=== PATIENT | male | born 1980 | race Caucasian/White ===

== ENCOUNTER 2020-08-02 22:59 | Emergency (ER) | payer OTHER, SELFPAY ==
[2020-08-02 23:23] VITALS: BP 169/119; PULSE 125; RESP 16; TEMP 38.2; O2SAT 99; BMI 26.6
--- NOTE | 2020-08-02 23:35 | W.ED.FEVER ---
HPI - Fever General: Chief Complaint: Fever Stated Complaint: Sore throat/cough/ Time Seen by Provider: 08/02/20 23:31 Source: patient Mode of arrival: ambulatory Limitations: no limitations History of Present Illness: HPI Narrative: Patient comes in with 2-day history of malaise, cough, and fever starting today. Patient has had positive COVID-19 exposure. Patient also has a couple of healing lesions that he reports are pretty well cleared. Patient appears mildly unwell. Patient appears in no pain. Review of Systems General: Reports: 10 or more systems reviewed and unremarkable except in HPI and below Resp: Reports: dyspnea and non-productive cough Physical Exam Const: COMMON NORMALS: no acute distress and patient oriented x3 GENERAL APPEARANCE: cooperative HENMT: COMMON NORMALS: normocephalic, TM's normal bilaterally and Normal external nose present HEAD & SCALP: normal to inspection and normocephalic NOSE: Normal external nose present TYMPANIC MEMBRANE: TM's normal bilaterally MOUTH: Normal oral and palatal mucosa present THROAT: posterior oropharynx normal Eye: GENERAL EYE: appearance normal, both eyes and all related structures Neck/C-Spine: COMMON NORMALS: full ROM Lymph: LYMPHATIC: no lymphadenopathy noted Chest: COMMONS NORMALS: normal inspection of the chest Resp: COMMON NORMALS: normal respiratory effort EFFORT & INSPECTION: Yes able to speak in complete sentences Cardio: COMMON NORMALS: regular rate and regular rhythm RATE: regular rate RHYTHM: regular rhythm GI: COMMON NORMALS: non-tender : COMMON NORMALS: Yes no CVA tenderness BLADDER/KIDNEY EXAM: Yes no CVA tenderness Back/Pelvis: COMMON NORMALS: no CVA tenderness and thoracic and lumbar spine normal to inspection Extremity: COMMON NORMALS: normal to inspection Neuro: COMMON NORMALS: patient oriented x3 and moves all extremities Psych: COMMON NORMALS: mental status grossly normal and cooperative Skin: NARRATIVE SKIN EXAM: Clearing skin lesions. Course Vital Signs: Vital signs: Vital Signs Temperature 100.7 F H 08/02/20 23:23 Pulse Rate 125 H 08/02/20 23:23 Respiratory Rate 16 08/02/20 23:23 Blood Pressure 169/119 08/02/20 23:23 Pulse Oximetry 99 08/02/20 23:23 MDM - Fever MDM Narrative: Medical decision making narrative: Patient comes in today for concerns of exposure to COVID-19. Patient does have symptoms of fever, cough and shortness of breath. Exam notes lungs are clear to auscultation. Vital signs are normal except for a fever of 100.7 and a mild tachycardia. Patient has some dry clearing lesions. Differential diagnosis includes pneumonia, upper respiratory infection, COVID-19, folliculitis. Patient's folliculitis is clearing. We will go ahead and cover with Bactrim due to history of MRSA. Patient exam indicates a upper respiratory infection at this time. No signs of pneumonia is noted. COVID-19 testing was sent to [facility]. Reviewed exam with patient recommendations for treatment and follow-up. Patient reported understanding Discharge Plan Discharge Patient Disposition: Home Clinical Impression: Folliculitis, Close exposure to 2019 novel coronavirus URI (upper respiratory infection) Qualifiers: URI type: unspecified URI Qualified Code(s): J06.9 - Acute upper respiratory infection, unspecified Condition: Stable Prescriptions: New Bactrim DS 800-160 mg tablet 1 tab PO BID 7 Days Qty: 14 RF: 0 Discharge Orders: Discharge Order (Routine); Ordered 08/02/20 Ordered By: Rommel Perales Referrals: Reese Baxter [Primary Care Provider] - Discharge Diet: Usual diet Discharge Activity: Increase activity as tolerated Patient Instructions: Folliculitis (ED) Activity Restrictions/Additional Instructions: Drink plenty of fluids. Acetaminophen and ibuprofen for pain and fever. It will take 2 to 3 days for the COVID for test results. Use antibiotics as directed for skin infection. Follow-up with primary care. Return to the emergency department for new concerns. Stay quarantine until test results are returned. 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
[2020-08-02] MEDS: acetaminophen 500 mg Tablet 1000 MG PO (23:52)
[2020-08-02] MEDS: sulfamethoxazole-trimeth DS 160-800 mg Tablet 1 TAB PO (23:52)
[2020-08-02 23:53] VITALS: BP 166/110; PULSE 124; RESP 24; O2SAT 98
[2020-08-04 14:32] LABS: Quest SARS-CoV-2 RNA NOT DETECTED (NOT DETECTED)
== END 2020-08-03 00:05 | disposition home or self-care (01) ==
PROVIDERS: Emergency Provider Nurse Practitioner Family; PCP Physician Assistant
DX: J06.9 Acute upper respiratory infection, unspecified (principal); L73.9 Follicular disorder, unspecified; Z20.828 Contact with and (suspected) exposure to other viral communicable diseases
CPT/HCPCS: 12345; 87635; 99282; 99283

== ENCOUNTER 2020-10-19 15:25 | Emergency (ER) | payer SELFPAY ==
[2020-10-19 15:39] VITALS: BP 198/154; PULSE 109; RESP 18; TEMP 36.8; O2SAT 100; BMI 26.6
--- NOTE | 2020-10-19 16:24 | ED_ITS ---
HPI - Skin/Abscess/Foreign Bdy General: Chief complaint: Skin/Abscess/Foreign Body Stated complaint: left food issue Time Seen by Provider: 10/19/20 16:16 Source: patient Mode of arrival: ambulatory Limitations: no limitations History of Present Illness: HPI narrative: Patient comes in with redness and swelling to the dorsal left foot. Patient reports no history of staph or joint problems. Patient appears well. Patient appears no acute distress. Patient is able to bear weight on the extremity. Review of Systems General: Reports: 10 or more systems reviewed and unremarkable except in HPI and below Musc: Reports: other (Left foot redness and swelling.) Physical Exam Const: COMMON NORMALS: no acute distress and patient oriented x3 GENERAL APPEARANCE: cooperative HENMT: COMMON NORMALS: normocephalic and Normal external nose present HEAD & SCALP: normal to inspection and normocephalic NOSE: Normal external nose present MOUTH: Normal oral and palatal mucosa present Eye: GENERAL EYE: appearance normal, both eyes and all related structures Neck/C-Spine: COMMON NORMALS: full ROM Chest: COMMONS NORMALS: normal inspection of the chest Resp: COMMON NORMALS: normal respiratory effort EFFORT & INSPECTION: Yes able to speak in complete sentences Cardio: COMMON NORMALS: regular rate and regular rhythm RATE: regular rate RHYTHM: regular rhythm GI: COMMON NORMALS: non-tender Back/Pelvis: COMMON NORMALS: thoracic and lumbar spine normal to inspection Extremity: NARRATIVE EXTREMITY EXAM: Patient has a area of redness and mild swelling to the dorsal left foot. Pulses are intact. Minimal induration is noted to the skin. Redness and swelling is localized to a specific area to the foot. Neuro: COMMON NORMALS: patient oriented x3 and moves all extremities Psych: COMMON NORMALS: mental status grossly normal and cooperative Skin: COMMON NORMALS: no rashes or lesions noted GENERAL SKIN EXAM: no rashes or lesions noted Course Vital Signs: Vital signs: Vital Signs Temperature 98.2 F 10/19/20 15:39 Pulse Rate 109 H 10/19/20 15:39 Respiratory Rate 18 10/19/20 15:39 Blood Pressure 198/154 10/19/20 15:39 Pulse Oximetry 100 10/19/20 15:39 MDM - Skin/Abscess/Foreign Bdy MDM Narrative: Medical decision making narrative: Patient comes in for evaluation of redness and swelling to the dorsal left foot. Exam notes equal pulses prompt capillary refill. Patient is weightbearing. Patient does have tenderness to the area of redness and swelling. Differential diagnosis includes cellulitis, gout, dermatophyte infection. Patient was started on clindamycin 450 twice a day for 7 days. Patient was treated with ibuprofen and hydrocodone for pain and discomfort. Patient was recommended to rest for the next 2 days with foot elevated and monitor for increasing swelling or worsening symptoms. Patient reported understanding of care plan and need for follow-up or return. Discharge Plan Discharge Patient Disposition: Home Clinical Impression: Cellulitis of left foot Condition: Stable Prescriptions: New clindamycin HCl 150 mg capsule 450 mg PO BID 7 Days Qty: 42 RF: 0 ibuprofen 600 mg tablet 600 mg PO Q6H Qty: 30 RF: 0 hydrocodone-acetaminophen 5-325 mg tablet 1 tab PO Q6H PRN (Reason: pain) Qty: 7 RF: 0 Discharge Orders: Discharge ED (Routine); Ordered 10/19/20 Ordered By: Rommel Perales Discharge Diet: Usual diet Discharge Activity: Increase activity as tolerated Patient Instructions: Cellulitis (ED) Activity Restrictions/Additional Instructions: Home and rest. Elevate foot. Drink plenty of water with medication. Healthy diet and activity. Take medications as directed. Follow-up with primary care as needed. Return to the emergency department for new concerns or worsening symptoms. 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
[2020-10-19] MEDS: clindamycin 150 mg Capsule 450 MG PO (16:43)
[2020-10-19] MEDS: HYDROcodone-acetaminophen 5-325 mg Tablet 1 TAB PO (16:43)
[2020-10-19] MEDS: ibuprofen 600 mg Tablet PO (16:43)
== END 2020-10-19 16:45 | disposition home or self-care (01) ==
PROVIDERS: Emergency Provider Nurse Practitioner Family
DX: L03.116 Cellulitis of left lower limb (principal)
CPT/HCPCS: 12345; 99281; 99283

== ENCOUNTER 2020-11-16 22:02 | Inpatient (IN) | payer SELFPAY ==
[2020-11-16 22:07] VITALS: BP 140/100; PULSE 89; RESP 16; TEMP 36.3; O2SAT 98; BMI 26.6
--- NOTE | 2020-11-16 22:16 | XR_ITS ---
WS: [id number] KUB, 11/16/2020 Clinical Data: LUQ pain Comparison: None. Findings: No abnormal intraabdominal masses or calcifications are seen. There is no dilatated small bowel or ev idence of obstruction. There is increased density in the left sided abdomen which may indicate a left-sided mass. XR/XR KUB portable [id number] Impression: Possible left abdominal mass.
--- NOTE | 2020-11-16 22:19 | W.ED.ABDPA2 ---
Documented by User: DEJA Carmona 11/17/20 00:22 HPI - Abdominal Pain General: Chief Complaint: Abdominal Pain Stated Complaint: ab pain Time Seen by Provider: 11/16/20 22:07 History of Present Illness: HPI narrative: States he is feeling fine all day cutting firewood went home to eat after about an hour or less after eating developed severe left upper quadrant pain. To the pain continues denies any medication usage for. Does feel better after burping. She denies any injury. He said he was hauling firewood earlier today but did not fall. Denies any recent injury in the last few days. After speaking with his dad later his dad said that he had been feeling bad 2 or 3 days. MD elicited complaint: abdominal pain Onset (ago): minute(s) Pain Consistency: constant Location: LUQ Severity: moderate Quality: cramping Radiation: LUQ Migration to: no migration Associated Symptoms: Reports no associated symptoms; Denies chills, fever(s), nausea and vomiting Review of Systems Const: Denies: fever(s), chills or body aches Eyes: Denies: change in vision or blurry vision ENMT: Denies: throat pain or nasal congestion Card: Denies: chest pain or dyspnea on exertion Resp: Denies: dyspnea, productive cough or non-productive cough GI: Reports: abdominal pain; Denies: nausea or vomiting : Denies: difficulty urinating Musc: Denies: extremity pain Skin/Breast: Denies: rash Neuro: Denies: headache(s) Psych: Denies: anxiety or depression Roby/Lymph: Denies: easy bruising Physical Exam Const: COMMON NORMALS: no acute distress, average body habitus and patient oriented x3 HENMT: COMMON NORMALS: normocephalic HEAD & SCALP: normal to inspection and normocephalic FACE & SINUS: normal facial exam Eye: COMMON NORMALS: conjunctivae normal GENERAL EYE: appearance normal, both eyes and all related structures CONJUNCTIVA: Yes conjunctivae normal Neck/C-Spine: COMMON NORMALS: no JVD Chest: COMMONS NORMALS: normal inspection of the chest Resp: COMMON NORMALS: normal respiratory effort and clear to auscultation bilaterally AUSCULTATION: clear to auscultation bilaterally Cardio: COMMON NORMALS: no JVD, regular rate and regular rhythm RATE: regular rate RHYTHM: regular rhythm GI: COMMON NORMALS: Normal to inspection, nondistended, normoactive bowel sounds present PALPATION: Yes Tenderness to palpation present (GI) Details: LUQ Extremity: COMMON NORMALS: normal to inspection and full ROM Neuro: COMMON NORMALS: patient oriented x3 Course Vital Signs: Vital signs: Vital Signs Temperature 97.3 F L 11/16/20 22:07 Pulse Rate 87 11/17/20 00:09 Respiratory Rate 16 11/17/20 00:09 Blood Pressure 119/66 11/17/20 00:09 Pulse Oximetry 96 11/17/20 00:09 MDM - Abdominal Pain MDM Narrative: Medical decision making narrative: Discussed case with Dr. Ferro suggest called Dr. Duncan. I spoke with Dr. Perla Duncan says admit patient to [facility] and he will follow. Lab Data: Labs: Lab Results 11/16/20 11/16/20 Range/Units 22:16 22:16 WBC 13.6 H (4.0-10.0) 10^3/ uL RBC 4.16 (4.1-5.3) 10^6/u L Hgb 11.9 (11.7-16.6) g/dL Hct 37.5 L (42.0-52.0) % MCV 90.1 (80-94) fL MCH 28.6 (28.0-34.0) pg MCHC 31.7 (30.0-36.0) g/dL RDW 12.3 (12.1-15.1) % Plt Count 315 (130-400) 10^3/c mm MPV 9.8 (7.4-10.4) fL Neut % (Auto) 82.8 % Lymph % (Auto) 10.2 % [place] % (Auto) 5.6 % Eos % (Auto) 0.3 % Baso % (Auto) 0.7 % Neut # (Auto) 11.24 H (1.8-7.7) 10^3/u L Lymph # (Auto) 1.4 (0.8-4.8) 10^3/u L [place] # (Auto) 0.8 (0.2-0.9) 10^3/u L Eos # (Auto) 0.0 (0.0-0.8) 10^3/u L Baso # (Auto) 0.1 (0.0-0.1) 10^3/u L Nucleated RBC % (a uto) 0 % Nucleated RBCs # 0.0 /100WBC Sodium 140 (136-145) mmol/L Potassium 3.8 (3.5-5.1) mmol/L Chloride 104 (98-107) mmol/L Carbon Dioxide 29 (22-29) mmol/L Anion Gap 10.8 (5-19) BUN 17 (6-20) mg/dL Creatinine 1.5 H (0.7-1.2) mg/dL GFR Calculation 51.6 L (90-130) mL/min Glucose 156 H (65-115) mg/dL Calculated Osmolal ity 295 (285-295) mOsm/k g Calcium 8.5 (8.5-10.5) mg/dL Total Bilirubin 0.2 (0.15-1.2) mg/dL AST 19 (0-40) U/L ALT 24 (0-41) U/L Alkaline Phosphata se 106 (40-130) IU/L Total Protein 6.3 L (6.6-8.7) g/dL Albumin 3.3 L (3.5-5.2) g/dL Globulin 3.0 (1.3-4.6) g/dL Lipase 28 (13-60) U/L Discharge Plan Discharge Patient Disposition: Admitted As Inpatient Clinical Impression: Kidney laceration, left Qualifiers: Encounter type: initial encounter Qualified Code(s): S37.032A - Laceration of left kidney, unspecified degree, initial encounter Condition: Stable Coding Level of Care Code 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 He adamantly denies any trauma. I saw patient with above midlevel. I discussed this case with Dr. Duncan requested being admitted and will check every 3 hour H&H's. Patient has been stable here. His blood pressure and heart rate of been normal. Lab Data: Labs: Lab Results 11/16/20 11/16/20 Range/Units 22:16 22:16 WBC 13.6 H (4.0-10.0) 10^3/ uL RBC 4.16 (4.1-5.3) 10^6/u L Hgb 11.9 (11.7-16.6) g/dL Hct 37.5 L (42.0-52.0) % MCV 90.1 (80-94) fL MCH 28.6 (28.0-34.0) pg MCHC 31.7 (30.0-36.0) g/dL RDW 12.3 (12.1-15.1) % Plt Count 315 (130-400) 10^3/c mm MPV 9.8 (7.4-10.4) fL Neut % (Auto) 82.8 % Lymph % (Auto) 10.2 % [place] % (Auto) 5.6 % Eos % (Auto) 0.3 % Baso % (Auto) 0.7 % Neut # (Auto) 11.24 H (1.8-7.7) 10^3/u L Lymph # (Auto) 1.4 (0.8-4.8) 10^3/u L [place] # (Auto) 0.8 (0.2-0.9) 10^3/u L Eos # (Auto) 0.0 (0.0-0.8) 10^3/u L Baso # (Auto) 0.1 (0.0-0.1) 10^3/u L Nucleated RBC % (a uto) 0 % Nucleated RBCs # 0.0 /100WBC Sodium 140 (136-145) mmol/L Potassium 3.8 (3.5-5.1) mmol/L Chloride 104 (98-107) mmol/L Carbon Dioxide 29 (22-29) mmol/L Anion Gap 10.8 (5-19) BUN 17 (6-20) mg/dL Creatinine 1.5 H (0.7-1.2) mg/dL GFR Calculation 51.6 L (90-130) mL/min Glucose 156 H (65-115) mg/dL Calculated Osmolal ity 295 (285-295) mOsm/k g Calcium 8.5 (8.5-10.5) mg/dL Total Bilirubin 0.2 (0.15-1.2) mg/dL AST 19 (0-40) U/L ALT 24 (0-41) U/L Alkaline Phosphata se 106 (40-130) IU/L Total Protein 6.3 L (6.6-8.7) g/dL Albumin 3.3 L (3.5-5.2) g/dL Globulin 3.0 (1.3-4.6) g/dL Lipase 28 (13-60) U/L Critical Care Time Critical Care Time: Critical Care Time: Yes Total Critical Care Time: 36 Attestation: This case had a high probability of a clinically significant, sudden, or life threatening deterioration of this patient's condition which required my full and direct attention, intervention and personal management. 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
[2020-11-16 22:27] LABS: Basophils # 0.1 10^3/uL (0.0-0.1); Basophils % 0.7 %; Eosinophils % 0.3 %; Hematocrit 37.5 % (42.0-52.0); Hemoglobin 11.9 g/dL (11.7-16.6); Lymphocytes # 1.4 10^3/uL (0.8-4.8); Lymphocytes % 10.2 %; Mean Corpuscular HGB Conc 31.7 g/dL (30.0-36.0); Mean Corpuscular Hemoglobin 28.6 pg (28.0-34.0); Mean Corpuscular Volume 90.1 fL (80-94); Mean Platelet Volume 9.8 fL (7.4-10.4); Monocytes # 0.8 10^3/uL (0.2-0.9); Monocytes % 5.6 %; Neutrophils # 11.24 10^3/uL (1.8-7.7); Neutrophils % 82.8 %; Nucleated Red Blood Cells % 0 %; Platelet Count 315 10^3/cmm (130-400); Red Blood Count 4.16 10^6/uL (4.1-5.3); Red Cell Distribution Width 12.3 % (12.1-15.1); White Blood Count 13.6 10^3/uL (4.0-10.0)
--- NOTE | 2020-11-16 22:33 | CTR_ITS ---
PROCEDURE INFORMATION: Exam: CT Abdomen And Pelvis With Contrast Exam date and time: 11/16/2020 10:34 PM Age: 40 years old Clinical indication: Abdominal pain; Localized; Left lower quadrant (llq); Additional info: Luq pain TECHNIQUE: Imaging protocol: Computed tomography of the abdomen and pelvis with intravenous contrast. Radiation optimization: All CT scans at this facility use at least one of these dose optimization techniques: automated exposure control; mA and/or kV adjustment per patient size (includes targeted exams where dose is matched to clinical indication); or iterative reconstruction. Contrast material: OMNI 300; Contrast volume: 95 ml; Contrast route: INTRAVENOUS (IV); COMPARISON: CR XR KUB portable [id number] 11/16/2020 10:17 PM RADIATION DOSE METRICS: Total DLP (mGy-cm): 566.74 FINDINGS: Liver: Normal. No mass. Gallbladder and bile ducts: Normal. No calcified stones. No ductal dilation. Pancreas: Normal. No ductal dilation. Spleen: Normal. No splenomegaly. Adrenal glands: Normal. No mass. Kidneys and ureters: A small laceration is seen in the posterior aspect of the left kidney superior pole measuring approximately 9 mm in depth. Small foci of contrast extravasation are appreciated. A large left perinephric hematoma is noted which extends into the left aspect of the retroperitoneum. The left kidney is anteriorly displaced and mildly compressed. Relative delayed enhancement of the left kidney in comparison to the right kidney is appreciated. A tiny renal stone is seen in the left kidney. A 14 mm simple appearing right renal cyst is noted. The right kidney appears normal. Stomach and bowel: Unremarkable. No obstruction. No mucosal thickening. Appendix: No evidence of appendicitis. Vasculature: Unremarkable. No abdominal aortic aneurysm. Lymph nodes: Unremarkable. No enlarged lymph nodes. Urinary bladder: Unremarkable as visualized. Reproductive: Unremarkable as visualized. Bones/joints: Unremarkable. No acute fracture. Soft tissues: Unremarkable. CT/CT abdomen pelvis w con* [id number] IMPRESSION: Grade IV left renal injury. Josh Owen was informed of exam results at 11/17/2020 12:01 AM RELAY DISPATCHER. Radiation Dose CTDIVOL = (mGy): DLP = 566.74 (mGy-cm)
[2020-11-16] MEDS: ketorolac 30 mg/mL INJ IVP (22:35)
[2020-11-16] MEDS: diphenhydrAMINE 50 mg/mL SDV 1mL 25 MG IVP (22:35)
[2020-11-16] MEDS: ondansetron 2 mg/ML SDV 2 mL 4 MG IVP (22:35)
[2020-11-16 22:48] LABS: Alanine Aminotransferase 24 U/L (0-41); Albumin Level 3.3 g/dL (3.5-5.2); Alkaline Phosphatase 106 IU/L (40-130); Anion Gap 10.8 (5-19); Aspartate Amino Transferase 19 U/L (0-40); Blood Urea Nitrogen 17 mg/dL (6-20); Calcium 8.5 mg/dL (8.5-10.5); Carbon Dioxide 29 mmol/L (22-29); Chloride 104 mmol/L (98-107); Glomerular Filtration Rate 51.6 mL/min (90-130); Glucose 156 mg/dL (65-115); Lipase 28 U/L (13-60); Osmolality Calculated 295 mOsm/kg (285-295); Potassium 3.8 mmol/L (3.5-5.1); Sodium 140 mmol/L (136-145); Total Bilirubin 0.2 mg/dL (0.15-1.2); Total Protein 6.3 g/dL (6.6-8.7)
[2020-11-16 23:32] VITALS: PULSE 87; RESP 18; O2SAT 96
[2020-11-16] MEDS: sodium chloride 0.9% 1,000 ML 125 ML IV (23:53)
[2020-11-16] MEDS: morphine 4 mg/mL SDV 1 mL IVP (23:53)
[2020-11-17] VITALS (15 sets, daily range): BP systolic 117–156; BP diastolic 66–91; PULSE 82–98; RESP 15–20; TEMP 36.4–37.2; O2SAT 94–99
--- NOTE | 2020-11-17 02:45 | PC.NURSE ---
PT SOUND ASLEEP IN BED SNORING WHEN THIS RN WENT IN TO ASSESS AFTER HE ARRIVED TO FLOOR. PT IS NOTED TO HAVE BILATERAL IVS - ONE HAS NS RUNNING AT 125ML/HR. VITALS TAKEN BY SENIOR CARE PROVIDER AND ARE STABLE. RN ATTEMPTED TO WAKE PATIENT, HE OPENED HIS EYES, AND THEN FELL BACK ASLEEP. HE DOES NOT APPEAR TO BE IN PAIN AT THIS TIME. WILL CONTINUE TO ROUND AND CHECK LABS. WILL ATTEMPT TO DO ASSESSMENT WHEN PATIENT IS MORE ALERT.
[2020-11-17 05:28] LABS: Basophils # 0.1 10^3/uL (0.0-0.1); Basophils % 0.7 %; Eosinophils % 0.1 %; Hematocrit 34.9 % (42.0-52.0); Hemoglobin 11.1 g/dL (11.7-16.6); Lymphocytes # 1.9 10^3/uL (0.8-4.8); Lymphocytes % 13.9 %; Mean Corpuscular HGB Conc 31.8 g/dL (30.0-36.0); Mean Corpuscular Hemoglobin 28.7 pg (28.0-34.0); Mean Corpuscular Volume 90.2 fL (80-94); Mean Platelet Volume 10.5 fL (7.4-10.4); Monocytes # 0.9 10^3/uL (0.2-0.9); Monocytes % 6.9 %; Neutrophils # 10.41 10^3/uL (1.8-7.7); Nucleated Red Blood Cells % 0 %; Platelet Count 353 10^3/cmm (130-400); Red Blood Count 3.87 10^6/uL (4.1-5.3); Red Cell Distribution Width 12.4 % (12.1-15.1); White Blood Count 13.4 10^3/uL (4.0-10.0)
[2020-11-17 05:49] LABS: Alanine Aminotransferase 23 U/L (0-41); Albumin Level 3.6 g/dL (3.5-5.2); Alkaline Phosphatase 109 IU/L (40-130); Aspartate Amino Transferase 18 U/L (0-40); Blood Urea Nitrogen 18 mg/dL (6-20); Calcium 8.6 mg/dL (8.5-10.5); Carbon Dioxide 26 mmol/L (22-29); Chloride 102 mmol/L (98-107); Creatinine Clr Calc Pharmacy 86.0278; Globulin 2.3 g/dL (1.3-4.6); Glomerular Filtration Rate 66.7 mL/min (90-130); Glucose 122 mg/dL (65-115); Osmolality Calculated 285 mOsm/kg (285-295); Sodium 136 mmol/L (136-145); Total Bilirubin 0.3 mg/dL (0.15-1.2); Total Protein 5.9 g/dL (6.6-8.7)
--- NOTE | 2020-11-17 06:29 | P.HP_ITS ---
Providers/Chief Complaint Admitting Physician: Fidencio Duncan MD Chief Complaint: ab pain History of Present Illness Eric Artis is a 40 year old male who I evaluated for the first time today after admission through the emergency department last night. He was in his usual state of good health reportedly doing his normal activities including his daily wood cutting and firewood splitting. He developed a sudden onset of left flank and upper quadrant pain and the pain became worse over time. There was a report that his father apparently talked to the emergency department providers and said that he had been feeling bad for several days but that is not clear exactly what that meant. Denies any injury, trauma, accident fall etc. No prior similar episodes. Denied fever or chills. Work-up in the ER: CT scan showed a large left retroperitoneal hematoma with evidence of a small tear in the left upper pole posteriorly. The hematoma tracked down into the distal retroperitoneum on the left side. Left kidney showed contrast enhancement with some delay. There was some posterior compression from the hematoma. No evidence of obstructing stones hydronephrosis etc. There was one small stone identified on CT scan in the left renal collecting system CBC: Hemoglobin was 11.9. In July of last year was 15.5. White count mildly elevated at 13.6. BMP showed a creatinine of 1.5 with a baseline of 1.2 in July of last year. Since admission his white count has stabilized. Hemoglobin is drifting down slowly with a value at 3 AM of 11.1. Vital signs have been stable otherwise. He still having pain but it seems to be responding well to IV morphine. Does complain of hunger. Review of Systems Const: Reports: malaise; Denies: fever(s), chills or change in appetite Eyes: Denies: change in vision or blurry vision ENMT: Denies: throat pain Card: Denies: chest pain, palpitations, lightheadedness or syncope Resp: Denies: dyspnea, productive cough or wheezing GI: Reports: abdominal pain and nausea : Reports: flank pain; Denies: difficulty urinating or hematuria Musc: Reports: back pain; Denies: neck pain, joint redness or joint warmth Skin/Breast: Denies: rash Neuro: Denies: headache(s), Slurred speech present or seizure-like activity Psych: Denies: depression or hopelessness Endo: Denies: polyuria or flushing Roby/Lymph: Denies: easy bruising or easy bleeding All/Imm: Denies: urticaria or acute wheezing Medications/Allergies Home Medications Medication Instructions Recorded Confirmed Last Taken Type amlodipine [Norvasc] 5 mg PO DAILY@08 11/17/20 11/17/20 11/16/20 History aspirin 325 mg PO QAM 11/17/20 11/17/20 11/16/20 History Allergies Allergy/AdvReac Type Severity Reaction Status Date / Time Penicillins Allergy Intermediate ADR-Headach Verified 11/17/20 08:04 e PFSH Acute PFSH: Medical History (Updated 11/17/20 @ 19:31 by Fidencio Duncan MD) Cellulitis Hypertension Surgical History (Updated 11/17/20 @ 19:44 by Fidencio Duncan MD) History of vasectomy Social History (Updated 11/17/20 @ 06:37 by Fidencio Duncan MD) Smoking and tobacco status: current every day smoker Vitals/I&O/Wt Last Vital Signs Temp 97.6 F 11/17/20 02:30 Pulse 88 11/17/20 05:02 Resp 15 11/17/20 05:02 BP 117/80 11/17/20 05:02 Pulse Ox 94 11/17/20 05:02 Weight last 48 hrs Weight 180 lb Physical Exam Const: COMMON NORMALS: no acute distress, alert and well nourished GENERAL APPEARANCE: well kempt and well developed ORIENTATION/CONSCIOUSNESS: not confused HENMT: HEAD & SCALP: normocephalic and atraumatic Eye: COMMON NORMALS: conjunctivae normal and no scleral icterus Neck/C-Spine: COMMON NORMALS: full ROM GENERAL: Yes normal visual inspection Resp: COMMON NORMALS: normal respiratory effort EFFORT & INSPECTION: No labored and No Actively coughing GI: INSPECTION: No abdominal wall ecchymosis AUSCULTATION: Yes normoactive bowel sounds PALPATION: Yes Soft to palpation and Yes Tenderness to palpation present (GI) Details: LLQ and LUQ Back/Pelvis: GENERAL BACK: Yes CVA tenderness CVA tenderness: left Extremity: COMMON NORMALS: no clubbing, cyanosis or edema Neuro: COMMON NORMALS: no focal motor deficits SENSORIUM/ORIENTATION: Yes alert Psych: COMMON NORMALS: mental status grossly normal APPEARANCE: Yes grossly normal and Yes well kempt ATTITUDE: Yes calm and Yes engaged Skin: COMMON NORMALS: no rashes or lesions noted and no jaundice Data : 11/17/20 16:30 11/17/20 03:20 A&P Assessment and plan (1) Kidney laceration, left: Etiology unclear Status: Acute Qualifiers: Encounter type: initial encounter Qualified Code(s): S37.032A - Laceration of left kidney, unspecified degree, initial encounter (2) Retroperitoneal hematoma: Large left retroperitoneal hematoma from what appears to be spontaneous left renal bleed of unclear etiology with no corresponding lesion, obvious infection or injury. Status: Acute (3) Hypertension: Status: Inactive Attestations Medical Necessity Statement*: Large left retroperitoneal hematoma from what appears to be a spontaneous renal bleed of unclear etiology. While he appears stable currently there is significant risk for potential worsening of bleeding and for that reason he is being hospitalized and anticipate he will probably be in the hospital for couple days until course is clarified. Coding Level of Care Code Acute Manager Chemical for g Fwd Exam Comprehensive Diagnoses Kidney laceration, left S37.032A Encounter type: initial encounter Retroperitoneal hematoma K66.1 Hypertension I10
--- NOTE | 2020-11-17 07:04 | PC.NURSE ---
AM NOTE DR BELL AT PTS SIDE WELL THIS DAY SHIFT NURSE AND ADELITA, RN NOCS - ASSESSMENT PER WITH ORDERS REC'D - PT PLACED ON TELE MONITOR 8702 - NO BRUISING NOTED THROUGHOUT ABD OR BACK AREA - ABD REMAINS SOFT WITH NO DISTENTION - PAIN UPON PALPATION TO BOTH LEFT ABD AND BACK - WILL MONITOR - PT UNDERSTANDS TO CALL FOR ASSIST OUT OF BED
[2020-11-17] MEDS: sodium chloride 0.9% 1,000 ML 125 ML IV ×3 (09:32→23:40)
--- NOTE | 2020-11-17 09:46 | PC.CHAP ---
Pastoral Care Encounter/Spiritual Assessment Type of Contact [] Declined prefitter visit [] Patient/Family/Request visit [] Outpatient visit [] Follow-up visit [] Physician referral [] Code/Alert [x] Routine visit [] Staff referral [] Actively dying [x] Patient sleeping [] Family support [] [] Out of room [] Palliative care [] [] Receiving care in room [] Pre-surgical visit [] Trauma [] Long length of stay [] ICU visit [] Other: Relational/Emotional Strength [] Patient feels connected with others/family/visitors/staff [] Distress [] Loneliness/isolation [] Abandonment Spirituality of Patient [] Person of Priscilla [] Attends Yazidism of their Priscilla [] Believes in Prayer [] Reads Bible or Tenriism materials [] There are Spiritual issues to be addressed Screw Machine Repairer Interventions [] Prayer [] Active listening [] Non-anxious presence [] Spiritual/emotional support [] Crisis/trauma care [] Spiritual counseling [] Bereavement support [] Provided bereavement packet [] Provided Bible/devotional materials [] Provided toy/stuffed animal, coloring book to patient or family member [] Provided Communion [] Anointing/[place] [] Salvation [] Completed spiritual assessment [] Other: Impact on Illness or Injury [] Angry [] Fearful [] Anxious [] Often cries [] Exhaustion [] Unable to work [] Unable to attend faith [] Unable to walk/stand [] Unable to read [] Unable to drive [] Unable to eat/drink [] Unable to sleep [] Unable to be with family [] Patient intubated [] Other: Summary Time spent with patient
[2020-11-17] MEDS: morphine 4 mg/mL SDV 1 mL IVP (10:33)
[2020-11-17 10:44] LABS: Hematocrit 30.3 % (42.0-52.0); Hemoglobin 9.6 g/dL (11.7-16.6)
--- NOTE | 2020-11-17 12:09 | PC.RESP ---
Smoking Cessation information sent to patient.
--- NOTE | 2020-11-17 12:52 | PC.NURSE ---
LATE ENTRY 1145 DR BELL NOTIFIED OF RECENT H&H - ORDERS REC'D
[2020-11-17 14:17] LABS: Hematocrit 32.3 % (42.0-52.0); Hemoglobin 9.8 g/dL (11.7-16.6)
--- NOTE | 2020-11-17 16:12 | PC.NURSE ---
SHIFT UPDATE PT REMAINS ON ROOM AIR WITH SATS 94-96% - TELE REMAINS SR AT 84 - ABD SOFT WITH NO DISTENTION - ALL VSS - VISITOR AT SIDE
[2020-11-17 16:53] LABS: Hematocrit 29.2 % (42.0-52.0); Hemoglobin 9.2 g/dL (11.7-16.6)
--- NOTE | 2020-11-17 19:24 | PC.NURSE ---
Did my initial assessment at beginning of shift and patient barely is awake to answer questions. He falls asleep between questions. Phone rang and he answered it but was dozing off while on phone.
--- NOTE | 2020-11-17 19:59 | PC.NURSE ---
DR VISIT Dr Duncan in to talk with pt.
[2020-11-17 20:48] LABS: Hematocrit 34.6 % (42.0-52.0); Hemoglobin 10.9 g/dL (11.7-16.6)
[2020-11-17 22:09] LABS: Hematocrit 26.3 % (42.0-52.0); Hemoglobin 8.5 g/dL (11.7-16.6)
[2020-11-18] VITALS (11 sets, daily range): BP systolic 148–186; BP diastolic 78–110; PULSE 87–105; RESP 16–19; TEMP 36.3–37.5; O2SAT 94–98
[2020-11-18 01:22] LABS: Hematocrit 28.3 % (42.0-52.0); Hemoglobin 8.7 g/dL (11.7-16.6)
[2020-11-18 05:30] LABS: Basophils # 0.1 10^3/uL (0.0-0.1); Basophils % 0.7 %; Eosinophils # 0.1 10^3/uL (0.0-0.8); Eosinophils % 0.8 %; Hemoglobin 8.9 g/dL (11.7-16.6); Lymphocytes # 2.1 10^3/uL (0.8-4.8); Lymphocytes % 15.3 %; Mean Corpuscular HGB Conc 31.8 g/dL (30.0-36.0); Mean Corpuscular Hemoglobin 29.2 pg (28.0-34.0); Mean Corpuscular Volume 91.8 fL (80-94); Mean Platelet Volume 10.6 fL (7.4-10.4); Monocytes # 0.9 10^3/uL (0.2-0.9); Monocytes % 6.5 %; Neutrophils # 10.53 10^3/uL (1.8-7.7); Neutrophils % 76.3 %; Nucleated Red Blood Cells % 0 %; Platelet Count 244 10^3/cmm (130-400); Red Blood Count 3.05 10^6/uL (4.1-5.3); Red Cell Distribution Width 12.5 % (12.1-15.1); White Blood Count 13.8 10^3/uL (4.0-10.0)
--- NOTE | 2020-11-18 05:58 | PC.NURSE ---
Patient has slept all night. H+H done q3h. Levels dropped to 8.5 around 2200 but have improved a little since then. Voided 325 at one time. I asked if he has any pain and he said it just feels more like pressure.
[2020-11-18 07:04] LABS: Hematocrit 27.4 % (42.0-52.0); Hemoglobin 8.5 g/dL (11.7-16.6)
[2020-11-18] MEDS: sodium chloride 0.9% 1,000 ML 125 ML IV ×2 (07:37→15:35)
[2020-11-18] MEDS: morphine 4 mg/mL SDV 1 mL IVP ×3 (07:41→22:54)
[2020-11-18 10:55] LABS: Hematocrit 25.6 % (42.0-52.0); Hemoglobin 8.2 g/dL (11.7-16.6)
--- NOTE | 2020-11-18 11:14 | PC.CHAP ---
Pastoral Care Encounter/Spiritual Assessment Type of Contact [x] Declined kick press setter visit [] Patient/Family/Request visit [] Outpatient visit [] Follow-up visit [] Physician referral [] Code/Alert [] Routine visit [] Staff referral [] Actively dying [] Patient sleeping [] Family support [] [] Out of room [] Palliative care [] [] Receiving care in room [] Pre-surgical visit [] Trauma [] Long length of stay [] ICU visit [] Other: Relational/Emotional Strength [] Patient feels connected with others/family/visitors/staff [] Distress [] Loneliness/isolation [] Abandonment Spirituality of Patient [] Person of Priscilla [] Attends Christian of their Priscilla [] Believes in Prayer [] Reads Bible or Alevism materials [] There are Spiritual issues to be addressed Proofer Interventions [] Prayer [] Active listening [] Non-anxious presence [] Spiritual/emotional support [] Crisis/trauma care [] Spiritual counseling [] Bereavement support [] Provided bereavement packet [] Provided Bible/devotional materials [] Provided toy/stuffed animal, coloring book to patient or family member [] Provided Communion [] Anointing/[place] [] Salvation [] Completed spiritual assessment [] Other: Impact on Illness or Injury [] Angry [] Fearful [] Anxious [] Often cries [] Exhaustion [] Unable to work [] Unable to attend nondenominational [] Unable to walk/stand [] Unable to read [] Unable to drive [] Unable to eat/drink [] Unable to sleep [] Unable to be with family [] Patient intubated [] Other: Summary Declined kick press setter visit Time spent with patient 5 mins
[2020-11-18] MEDS: amlodipine 5 mg Tablet PO ×2 (13:22→15:34)
[2020-11-18] MEDS: HYDROcodone-acetaminophen 5-325 mg Tablet 1 TAB PO ×2 (15:34→21:18)
--- NOTE | 2020-11-18 16:18 | PM.CONSULT ---
Providers/Reason For Consult Consulting Physican/Specialty*: Dr. Clifford/internal medicine Reason for Consult*: High blood pressure Requesting Physcian: Dr. Duncan Attending Physician: Altagracia Acevedo MD History of Present Illness History of Present Illness Eric Artis is a 40 year old male with past medical history of hypertension, noncompliance. Patient was admitted on November 16 for sudden left flank and left upper quadrant pain which was worsening over time and now work-up in the ER showed large left retroperitoneal hematoma with evidence of small tear in the left upper pole of the kidney posteriorly with hematoma tracking down into the distal retroperitoneum on the left side. He is been getting observation/expectant treatment for the same. Medicine was consulted for elevated blood pressures. Patient states he has a history of high blood pressure and is supposed to be taking amlodipine 5 mg daily at home which she does not usually take. Patient states he checks his blood pressure at home and usually the blood pressures are running higher than 170 mmHg. But he takes amlodipine only when he starts having headaches because of high blood pressures. Currently patient is complaining of pain in his left flank and mild headache but denies any nausea, vomiting, chest pain, difficulty in breathing, weakness in any of his arms or legs, dysuria, diarrhea, fever, chills. His last documented blood pressure is 170/90 mmHg with heart rate of 98 bpm. Patient has received amlodipine 5 mg twice since morning. Review of Systems General: Reports: 10 or more systems reviewed and unremarkable except in HPI and below Const: Denies: fever(s), chills, body aches, change in appetite, change in weight, malaise, night sweats, diaphoresis, change in sleep pattern, daytime sleepiness or snoring Eyes: Denies: change in vision, blurry vision, photophobia, eye discomfort or eye discharge ENMT: Denies: throat pain, enlarged tonsils, hoarseness, mouth pain, oral sores, dry mouth, tinnitus, nasal congestion or post nasal drip Card: Denies: chest pain, palpitations, irregular heart rhythm, edema, swelling of feet/ankles, lightheadedness, syncope, pre-syncope, dyspnea on exertion, orthopnea, leg pain with exertion or acrocyanosis Resp: Denies: dyspnea, productive cough, non-productive cough, wheezing, stridor, pain on inspiration, change in phlegm color, hemoptysis or chest congestion GI: Denies: abdominal pain, nausea, vomiting, hematemesis, coffee ground emesis, dysphagia, heartburn, diarrhea, constipation, bloating, GI cramping, change in bowel habits, pain on defecation, hematochezia or melena : Denies: flank pain, difficulty urinating, dysuria, urinary frequency, urinary urgency, urinary hesitancy, urinary dribbling, difficulty starting urination, change in urine stream, nocturia or hematuria Musc: Denies: neck pain, back pain, extremity pain, joint pain, joint swelling, joint redness, joint stiffness or limited range of motion Neuro: Denies: headache(s), numbness in extremities, weakness in extremities, sensory changes, lack of coordination, difficulty walking, frequent falls, dizziness, vertigo, confusion, Slurred speech present, difficulty communicating thoughts or seizure-like activity Psych: Denies: anxiety, depression, mood swings, panic attacks, hopelessness or irritability Endo: Denies: polyuria, polydipsia, tired all the time, cold intolerance, excessive sweating, flushing or heat intolerance Roby/Lymph: Denies: easy bruising or easy bleeding All/Imm: Denies: tongue swelling, facial swelling or acute wheezing Meds/Allergies Home Medications and Allergies Home Medications Medication Instructions Recorded Confirmed Last Taken Type amlodipine [Norvasc] 5 mg PO DAILY@08 11/17/20 11/17/20 11/16/20 History aspirin 325 mg PO QAM 11/17/20 11/17/20 11/16/20 History Allergies Allergy/AdvReac Type Severity Reaction Status Date / Time Penicillins Allergy Intermediate ADR-Headach Verified 11/17/20 08:04 e Current Medications Current Medications Generic Name Dose Route Start Last Admin Trade Name Freq PRN Reason Stop Dose Admin Hydrocodone Bitart/Acetaminophen 1 tab 11/17/20 19:41 11/18/20 15:34 Hydrocodone-Acetaminophen 5-325 Mg Tablet PO 1 tab Q4H PRN Administration MODERATE PAIN Sodium Chloride 1,000 mls @ 50 mls/hr 11/16/20 23:45 11/18/20 15:35 Sodium Chloride 0.9% IV 125 mls/hr .Q20H JOSÉ Administration Morphine Sulfate 4 mg 11/17/20 02:50 11/18/20 07:41 Morphine 4 Mg/Ml Sdv 1 Ml IVP 4 mg Q4H PRN Administration SEVERE PAIN PFSH Acute PFSH: Medical History Cellulitis Hypertension Surgical History History of vasectomy Family History (Updated 11/19/20 @ 13:50 by Javid Clifford MD) Denies family history of CAD (coronary artery disease) Bleeding disorder Social History (Updated 11/19/20 @ 13:50 by Javid Clifford MD) Smoking and tobacco status: current every day smoker Alcohol intake: never Substance/Drug Use: current Housing: House Vitals/I&O/Wt Last Vital Signs Temp 98.0 F 11/18/20 15:18 Pulse 105 H 11/18/20 15:18 Resp 16 11/18/20 15:18 BP 170/102 11/18/20 15:18 Pulse Ox 96 11/18/20 15:18 11/18/20 11/18/20 11/18/20 06:59 14:59 22:59 Intake Total 1267.5 / 3816.667 1473.75 / 1473.75 995.833 / 2469.583 Output Total 725 / 1325 Balance 542.5 / 2491.667 1473.75 / 1473.75 995.833 / 2469.583 Weight last 48 hrs Weight 81.647 kg Physical Exam Narrative: EXAM NARRATIVE: EXAM NARRATIVE: General: No acute distress, AO x3, NC oxygen supplementation HEENT: PERRLA, pupils bilaterally equal and reactive Chest:Bronchial breath sounds b/l ,decreased air entry, equal good air entry bilaterally, no more fine basal crackles CVS: S1-S2 regular, no murmurs, no tachycardia, no gallops, no rubs Abdomen: Soft, nontender, no organomegaly, bowel sounds present, morbidly obese Neuro: No focal deficits, no facial deformity, AO x3, power 5/5 in all limbs A&P Assessment and plan (1) Hypertensive urgency: Status: Acute (2) Retroperitoneal hematoma: Status: Acute (3) Kidney laceration, left: Status: Acute Qualifiers: Encounter type: initial encounter Qualified Code(s): S37.032A - Laceration of left kidney, unspecified degree, initial encounter Additional A&P Information Hypertensive urgency: Patient has history of hypertension. Takes amlodipine 5 mg daily. Blood pressure elevated most likely secondary to pain at present. We will optimize pain medications. Continue with [place] as needed and morphine 2 mg every 4 hours as needed. We will increase amlodipine to 10 mg daily. Can use hydralazine 10 mg IV every 4 hours as needed for systolic blood pressure of 150 mmHg. Decrease IV fluids to 50 cc/h as patient is eating well. Retroperitoneal hematoma/left kidney laceration: Treatment as per Dr. Duncan. We will repeat CBC and CMP tomorrow morning. Cardiac diet. Full code. No anticoagulation in view of retroperitoneal hematoma. Consult Attestations Medical Necessity Statement: As per primary team. Time Spent in Patient Care: Greater than 35 minutes Coding Level of Care Code Acute Vacuum Forming Machine Operator for Uzair Briggs Diagnoses Hypertensive urgency I16.0 Retroperitoneal hematoma K66.1 Kidney laceration, left S37.032A Encounter type: initial encounter
[2020-11-18] MEDS: hyDRALAzine 20 mg/mL INJ 1 mL 10 MG IVP ×2 (17:00→21:17)
--- NOTE | 2020-11-18 17:37 | P.PN_ITS ---
Subjective Subjective: Interval history: Urology follow-up: Continues to complain of pain. Starting to have more groin pain on the left side. Thought it felt like a hernia. No fever or chills. Does complain of some headache. Having some anxiety related to being in the hospital for so long and feeling poorly. Having his life partner up here has helped somewhat with that. On exam there is still significant tenderness on the left side front and back. I cannot feel a hernia. Normal genitourinary exam otherwise. Because of increasing blood pressure he was started back on amlodipine. Requested consultation from hospitalist service to assist with hypertension management. Appreciate Dr. Clifford's assistance with that. Currently no indication for transfusion. Vitals/I&O/Wt Last Vital Signs Temp 98.0 F 11/18/20 15:18 Pulse 105 H 11/18/20 15:18 Resp 16 11/18/20 15:18 BP 170/102 11/18/20 15:18 Pulse Ox 96 11/18/20 15:18 11/18/20 11/18/20 11/18/20 06:59 14:59 22:59 Intake Total 1267.5 / 3816.667 1473.75 / 1473.75 995.833 / 2469.583 Output Total 725 / 1325 Balance 542.5 / 2491.667 1473.75 / 1473.75 995.833 / 2469.583 Weight last 48 hrs Weight 180 lb Physical Exam Const: COMMON NORMALS: no acute distress, alert and well nourished GENERAL APPEARANCE: well kempt and well developed ORIENTATION/CONSCIOUSNESS: not confused HENMT: COMMON NORMALS: normocephalic and atraumatic HEAD & SCALP: normocephalic and atraumatic Eye: COMMON NORMALS: conjunctivae normal and no scleral icterus CONJUNCTIVA: Yes conjunctivae normal Neck/C-Spine: COMMON NORMALS: full ROM Resp: COMMON NORMALS: normal respiratory effort EFFORT & INSPECTION: No labored and No Actively coughing : COMMON NORMALS: No no CVA tenderness, Yes normal external exam, Yes Testes normal, Yes scrotum normal, Yes no scrotal swelling and Yes No hernias present BLADDER/KIDNEY EXAM: No no CVA tenderness Back/Pelvis: COMMON NORMALS: negative for no CVA tenderness Extremity: COMMON NORMALS: no clubbing, cyanosis or edema Neuro: COMMON NORMALS: no focal motor deficits SENSORIUM/ORIENTATION: Yes alert Psych: APPEARANCE: Yes grossly normal and Yes well kempt ATTITUDE: Yes calm and Yes engaged Skin: COMMON NORMALS: no rashes or lesions noted GENERAL SKIN EXAM: no rashes or lesions noted Data : 11/18/20 10:38 11/17/20 03:20 Attestations Medical Necessity Statement*: Continues to have drifting down of his hemoglobin. Hypertension complicating that. Needs to be in the hospital for management of both. Risk associated with premature discharge is significant. Coding Level of Care Code Acute Systems Operator for Uzair Briggs
--- NOTE | 2020-11-18 20:24 | PC.NURSE ---
BP 172/82, pt reports headache rated 7 on 1-10 pain scale. Pt ivs are patent and flushed with NS. Pt's mother called Rosario Chester [phone] for report on pt condition and would like to visit in the am.
--- NOTE | 2020-11-18 21:22 | PC.NURSE ---
Hydralazine 10mg IVP given for BP172/82 and [place] 5-325 mg PO given for headache rated 7 on 1-10 pain scale will continue to monitor
[2020-11-18] MEDS: ondansetron 2 mg/ML SDV 2 mL 4 MG IVP (22:54)
--- NOTE | 2020-11-18 23:05 | PC.NURSE ---
Morphine 4mg IVP given for pain rated 8 on 1-10 scale. Zofran 4mg IVP given for Nausea r/t morphine administration. PT HR 85 RR 18 BP 157/98 and oxygen is 97% on RA. Will continue to monitor pt v/s and pain control
[2020-11-19] VITALS (8 sets, daily range): BP systolic 135–165; BP diastolic 81–105; PULSE 73–89; RESP 16–20; TEMP 36.4–37.3; O2SAT 94–98
[2020-11-19] MEDS: sodium chloride 0.9% 1,000 ML 125 ML IV (03:41)
[2020-11-19] MEDS: morphine 4 mg/mL SDV 1 mL IVP ×3 (05:34→18:25)
[2020-11-19] MEDS: hyDRALAzine 20 mg/mL INJ 1 mL 10 MG IVP ×2 (05:34→12:17)
[2020-11-19] MEDS: ondansetron 2 mg/ML SDV 2 mL 4 MG IVP (05:34)
--- NOTE | 2020-11-19 05:39 | PC.NURSE ---
Pt complaints of headache and kidney pain rated as 9 on a1-10 pain scale . Given Morphine 4mg Ivp pushed over 5 min. Pt blood pressure is 166/105. HR 85, RR 20, 97.9Given Alprasoline 10mg IVP pushed over 2 min. Complaints of Nausea, given 4mg Zofran IVP .
[2020-11-19 06:10] LABS: Basophils # 0.1 10^3/uL (0.0-0.1); Basophils % 0.5 %; Eosinophils # 0.1 10^3/uL (0.0-0.8); Eosinophils % 1.2 %; Hematocrit 25.7 % (42.0-52.0); Hemoglobin 8.3 g/dL (11.7-16.6); Lymphocytes # 1.5 10^3/uL (0.8-4.8); Lymphocytes % 13.3 %; Mean Corpuscular HGB Conc 32.3 g/dL (30.0-36.0); Mean Corpuscular Hemoglobin 28.7 pg (28.0-34.0); Mean Corpuscular Volume 88.9 fL (80-94); Mean Platelet Volume 10.3 fL (7.4-10.4); Monocytes # 0.8 10^3/uL (0.2-0.9); Monocytes % 7.5 %; Neutrophils # 8.56 10^3/uL (1.8-7.7); Nucleated Red Blood Cells % 0 %; Platelet Count 251 10^3/cmm (130-400); Red Blood Count 2.89 10^6/uL (4.1-5.3); Red Cell Distribution Width 12.3 % (12.1-15.1); White Blood Count 11.1 10^3/uL (4.0-10.0)
[2020-11-19 06:30] LABS: Alanine Aminotransferase 16 U/L (0-41); Albumin Level 3.2 g/dL (3.5-5.2); Alkaline Phosphatase 94 IU/L (40-130); Anion Gap 10.9 (5-19); Aspartate Amino Transferase 14 U/L (0-40); Blood Urea Nitrogen 9 mg/dL (6-20); Calcium 8.6 mg/dL (8.5-10.5); Carbon Dioxide 26 mmol/L (22-29); Chloride 103 mmol/L (98-107); Globulin 2.8 g/dL (1.3-4.6); Glomerular Filtration Rate 106.5 mL/min (90-130); Glucose 109 mg/dL (65-115); Osmolality Calculated 281 mOsm/kg (285-295); Potassium 3.9 mmol/L (3.5-5.1); Sodium 136 mmol/L (136-145); Total Bilirubin 0.4 mg/dL (0.15-1.2)
[2020-11-19] MEDS: amlodipine 5 mg Tablet 10 MG PO (07:49)
[2020-11-19] MEDS: HYDROcodone-acetaminophen 5-325 mg Tablet 1 TAB PO (07:54)
--- NOTE | 2020-11-19 10:54 | USCV_ITS ---
Eric Artis Age: 40 Gender: M : 1980 Exam Date: 11/19/2020 16:19 Ordering Phys: Javid Clifford MD Technologist: Shanice Flores [place]am [place] [facility] [place]: UNCONTROLLED HTN BP: 152 / 92 HR: 73 Rhythm: Sinus Technical Quality: Adequate MEASUREMENTS (Male / Female) Normal Values 2D ECHO LV Diastolic Diameter PLAX 3.4 cm 4.2 - 5.9 / 3.9 - 5.3 cm LV Systolic Diameter PLAX 2.8 cm LV Chamber Size 3.5 cm IVS Diastolic Thickness 1.5 cm 0.6 - 1.0 / 0.6 - 0.9 cm IVS Systolic Thickness 1.2 cm LVPW Diastolic Thickness 1.5 cm 0.6 - 1.0 / 0.6 - 0.9 cm LVPW Systolic Thickness 1.5 cm RV Chamber Size 2.5 cm LVOT Diameter 2.1 cm LV Ejection Fraction 2D Teich 40.6 % LV Ejection Fraction MOD 2C 38.3 % LV Ejection Fraction 2C AL 38.0 % LA Diameter 3.8 cm LA Width 2.8 cm LA Height 4.9 cm RA Width 4.4 cm RA Height 3.1 cm Aorta at Sinotubular Diameter 2.9 cm M-MODE LV Diastolic Diameter MM 5.1 cm 4.2 - 5.9 / 3.9 - 5.3 cm LV Systolic Diameter MM 3.1 cm LV Ejection Fraction MM Teich 68.6 % IVS Diastolic Thickness MM 1.0 cm 0.6 - 1.0 / 0.6 - 0.9 cm IVS Systolic Thickness MM 1.6 cm LVPW Diastolic Thickness MM 0.9 cm 0.6 - 1.0 / 0.6 - 0.9 cm LVPW Systolic Thickness MM 1.5 cm RV Diastolic Diameter MM 0.9 cm Aortic Annulus Diameter 3.1 cm LA Ao Ratio MM 1.3 MV E Point Septal Separation 0.4 cm DOPPLER AV Peak Velocity 128.0 cm/s LVOT Peak Velocity 111.0 cm/s AV Area Cont Eq vti 3.4 cm squared AV Area Cont Eq pk 2.9 cm squared MV Area PHT 3.2 cm squared Mitral E to A Ratio 1.0 MV E' Velocity 41.5 cm/s Mitral E to MV E' Ratio 8.3 Mitral E to LV E' Lateral Ratio 8.0 Mitral E to LV E' Septal Ratio 8.8 TR Peak Velocity 125.0 cm/s TR Peak Gradient 6.3 mmHg TR Mean Velocity 91.7 cm/s TR Mean Gradient 3.7 mmHg TR Velocity Time Integral 29.8 cm TV Peak E Velocity 96.0 cm/s Right Atrial Pressure 3.0 mmHg Pulmonary Artery Systolic Pressu 9.3 mmHg PV Peak Velocity 98.0 cm/s RV Acceleration Time 0.2 s RV Ejection Time 0.3 s RV AcT/ET 0.5 FINDINGS Left Ventricle Mild to moderate concentric left renal hypertrophy.normal left ventricular size and systolic function, EF 60% .Grade I/IV diastolic dysfunction (abnormal relaxation filling pattern), normal to mildly elevated filling pressures. Right Ventricle The right ventricle is normal in size and function. Right Atrium The right atrium is normal in size. Left Atrium Mildly increased left atrial size. Mitral Valve Trace mitral valve regurgitation. Aortic Valve Structurally normal aortic valve without significant sclerosis or stenosis. There is no aortic regurgitation. Tricuspid Valve Trace tricuspid valve regurgitation. Pulmonic Valve Structurally normal pulmonic valve without significant stenosis. There is no pulmonic regurgitation. Pericardium Normal pericardium without effusion. Aorta Normal ascending aorta dimension. CONCLUSIONS Mild to moderate concentric left renal hypertrophy.normal left ventricular size and systolic function, EF 60% .Grade I/IV diastolic dysfunction (abnormal relaxation filling pattern), normal to mildly elevated filling pressures. Trace mitral valve regurgitation. Mildly increased left atrial size. Trace tricuspid valve regurgitation. No previous study is available for comparison. Dr Fabi Jones MD FAC (Electronically Signed) Final Date: 19 November 2020 17:05 S
--- NOTE | 2020-11-19 10:55 | P.PN_ITS ---
Subjective Subjective: Interval history: No acute events overnight. Patient's blood pressure is a little better. On examination complaining of headache. States still having left flank pain. Patient seems very anxious. Denies any chest pain, nausea, vomiting or weakness in any of his arms. Wants to go home as soon as possible. Overall patient has received 2 doses of as needed hydralazine since yesterday afternoon. Discussed in detail with patient regarding need of better blood pressure monitoring and compliance with medications. Also discussed with him in detail for needing him to stay in the hospital right now for continuous monitoring of concerning retroperitoneal hematoma with left renal laceration. Vitals/I&O/Wt Last Vital Signs Temp 97.5 F L 11/19/20 07:45 Pulse 76 11/19/20 07:45 Resp 17 11/19/20 07:45 BP 152/92 11/19/20 07:45 Pulse Ox 96 11/19/20 07:45 11/18/20 11/19/20 11/19/20 22:59 06:59 14:59 Intake Total 1115.833 / 2589.583 989.583 / 3579.166 Output Total 1300 / 1300 750 / 750 Balance 1115.833 / 2589.583 -310.417 / 2279.166 -750 / -750 Physical Exam Narrative: EXAM NARRATIVE: EXAM NARRATIVE: General: No acute distress, AO x3, NC oxygen supplementation HEENT: PERRLA, pupils bilaterally equal and reactive Chest:Bronchial breath sounds b/l ,decreased air entry, equal good air entry bilaterally, no more fine basal crackles CVS: S1-S2 regular, no murmurs, no tachycardia, no gallops, no rubs Abdomen: Soft, nontender, no organomegaly, bowel sounds present, morbidly obese Neuro: No focal deficits, no facial deformity, AO x3, power 5/5 in all limbs Data : 11/19/20 05:45 11/19/20 05:45 A&P Assessment and plan (1) Hypertensive urgency: Status: Acute (2) Retroperitoneal hematoma: Status: Acute (3) Kidney laceration, left: Status: Acute Qualifiers: Encounter type: initial encounter Qualified Code(s): S37.032A - Laceration of left kidney, unspecified degree, initial encounter Additional A&P Information Hypertensive urgency: Blood pressure little better today. Still elevated. Goal blood pressure now less than 140/90 mmHg. Continue with amlodipine 10 mg daily. Start patient on metoprolol 25 mg twice daily with first dose right now. Continue with hydralazine 10 mg IV every 4 hours as needed. For concern of uncontrolled hypertension for a long time will get echocardiogram. Retroperitoneal hematoma/left kidney laceration: Treatment as per Dr. Duncan. We will repeat CBC and CMP tomorrow morning. Cardiac diet. Full code. No anticoagulation in view of retroperitoneal hematoma. Attestations Medical Necessity Statement*: As per primary team. Coding Level of Care Code Acute Aviation Neuropsychologist for [facility] Fwd Diagnoses Hypertensive urgency I16.0 Retroperitoneal hematoma K66.1 Kidney laceration, left S37.032A Encounter type: initial encounter
--- NOTE | 2020-11-19 11:44 | PC.CHAP ---
Pastoral Care Encounter/Spiritual Assessment Type of Contact [xx] Declined bilingual patient support caseworker visit [] Patient/Family/Request visit [] Outpatient visit [] Follow-up visit [] Physician referral [] Code/Alert [xx] Routine visit [] Staff referral [] Actively dying [] Patient sleeping [] Family support [] [] Out of room [] Palliative care [] [] Receiving care in room [] Pre-surgical visit [] Trauma [] Long length of stay [] ICU visit [] Other: Relational/Emotional Strength [] Patient feels connected with others/family/visitors/staff [] Distress [] Loneliness/isolation [] Abandonment Spirituality of Patient [] Person of Priscilla [] Attends Judaism of their Priscilla [] Believes in Prayer [] Reads Bible or Mandaen materials [] There are Spiritual issues to be addressed Telecommunications Operator Interventions [] Prayer [] Active listening [] Non-anxious presence [] Spiritual/emotional support [] Crisis/trauma care [] Spiritual counseling [] Bereavement support [] Provided bereavement packet [] Provided Bible/devotional materials [] Provided toy/stuffed animal, coloring book to patient or family member [] Provided Communion [] Anointing/[place] [] Salvation [] Completed spiritual assessment [] Other: Impact on Illness or Injury [] Angry [] Fearful [] Anxious [] Often cries [] Exhaustion [] Unable to work [] Unable to attend muslim [] Unable to walk/stand [] Unable to read [] Unable to drive [] Unable to eat/drink [] Unable to sleep [] Unable to be with family [] Patient intubated [] Other: Summary Patient stated he is not very latter day and does not want female bilingual patient support caseworker or any one else. Time spent with patient 2 minutes
--- NOTE | 2020-11-19 14:10 | PM.PN ---
Subjective Subjective: Interval history: Urology follow-up: Increasing anxiety for being in the hospital. Complaining of a headache. No fever or chills. Still having significant pain in the left abdomen. Hypertensive. Dr. Clifford has continued the hydralazine and added METOPROLOL for better control. Has also ordered Xanax for anxiety. Patient was threatening to leave AMA but after talking with him he seemed to calm down and promised that he would stay as long as needed with hopes of potentially of leaving soon. That possibility has increased with stabilization of his hemoglobin at 8.3 this morning. I think that if his lab tomorrow shows similar results and his blood pressure is better controlled, from a safety perspective he would be a candidate for further convalescence at home with close monitoring of outpatient H&H. Vitals/I&O/Wt Last Vital Signs Temp 98.1 F 11/19/20 11:53 Pulse 89 11/19/20 11:53 Resp 16 11/19/20 14:03 BP 160/92 11/19/20 11:53 Pulse Ox 98 11/19/20 11:53 11/18/20 11/19/20 11/19/20 22:59 06:59 14:59 Intake Total 1115.833 / 2589.583 989.583 / 3579.166 Output Total 1300 / 1300 1575 / 1575 Balance 1115.833 / 2589.583 -310.417 / 2279.166 -1575 / -1575 Physical Exam Const: COMMON NORMALS: no acute distress, alert and well nourished GENERAL APPEARANCE: well kempt and well developed ORIENTATION/CONSCIOUSNESS: not confused Neck/C-Spine: COMMON NORMALS: full ROM Resp: COMMON NORMALS: normal respiratory effort EFFORT & INSPECTION: No labored and No Actively coughing Extremity: COMMON NORMALS: no clubbing, cyanosis or edema Neuro: COMMON NORMALS: no focal motor deficits SENSORIUM/ORIENTATION: Yes alert Psych: APPEARANCE: Yes grossly normal and Yes well kempt ATTITUDE: Yes calm and Yes engaged MOOD & AFFECT: Yes depressed mood and Yes anxious Skin: COMMON NORMALS: no rashes or lesions noted and no jaundice GENERAL SKIN EXAM: no rashes or lesions noted Data : 11/19/20 05:45 11/19/20 05:45 A&P Assessment and plan (1) Hypertensive urgency: Still having trouble controlling blood pressure but additional medications have been ordered. Status: Acute (2) Retroperitoneal hematoma: Still quite symptomatic as expected Status: Acute (3) Kidney laceration, left: Stabilization of hemoglobin today. 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
[2020-11-19] MEDS: ALPRAZolam 0.25 mg Tablet PO (15:04)
[2020-11-19] MEDS: metoprolol tartrate 25 mg Tablet PO ×2 (15:04→21:43)
[2020-11-19] MEDS: sodium chloride 0.9% 1,000 ML 50 ML IV (21:43)
[2020-11-20] VITALS (7 sets, daily range): BP systolic 125–169; BP diastolic 81–96; PULSE 67–88; RESP 16–18; TEMP 36.9–37.2; O2SAT 94–96
[2020-11-20] MEDS: ALPRAZolam 0.25 mg Tablet PO (00:30)
[2020-11-20] MEDS: morphine 4 mg/mL SDV 1 mL IVP ×2 (00:31→08:59)
[2020-11-20] MEDS: amlodipine 5 mg Tablet 10 MG PO (08:59)
[2020-11-20] MEDS: metoprolol tartrate 25 mg Tablet PO (08:59)
[2020-11-20 09:47] LABS: Basophils # 0.1 10^3/uL (0.0-0.1); Basophils % 0.5 %; Eosinophils # 0.1 10^3/uL (0.0-0.8); Eosinophils % 0.9 %; Hematocrit 27.7 % (42.0-52.0); Hemoglobin 8.9 g/dL (11.7-16.6); Lymphocytes # 1.1 10^3/uL (0.8-4.8); Lymphocytes % 7.8 %; Mean Corpuscular HGB Conc 32.1 g/dL (30.0-36.0); Mean Corpuscular Hemoglobin 28.9 pg (28.0-34.0); Mean Corpuscular Volume 89.9 fL (80-94); Mean Platelet Volume 10.9 fL (7.4-10.4); Monocytes # 0.7 10^3/uL (0.2-0.9); Monocytes % 5.1 %; Neutrophils # 11.55 10^3/uL (1.8-7.7); Neutrophils % 85.3 %; Nucleated Red Blood Cells % 0 %; Platelet Count 298 10^3/cmm (130-400); Red Blood Count 3.08 10^6/uL (4.1-5.3); Red Cell Distribution Width 12.4 % (12.1-15.1); White Blood Count 13.5 10^3/uL (4.0-10.0)
--- NOTE | 2020-11-20 10:38 | P.PN_ITS ---
Subjective Subjective: Interval history: No events overnight. Patient has remained stable. Blood pressures look better. States his headache is gone since blood pressures are better. Plan for discharge as per Dr. Duncan today. Discussed in detail with patient regarding need of continuous medications for high blood pressure. Patient states he understands and will continue the medication for now. He is agreeable to take amlodipine and metoprolol for now. States he was taking metoprolol in the past but had stopped by himself with concerns of possible erectile dysfunction as potential side effect. Patient states he would continue taking the medication for now. He is asking for a [facility] provider. Vitals/I&O/Wt Last Vital Signs Temp 98.9 F 11/20/20 08:00 Pulse 88 11/20/20 08:00 Resp 16 11/20/20 08:59 BP 154/96 11/20/20 08:00 Pulse Ox 95 11/20/20 08:00 11/19/20 11/20/20 11/20/20 22:59 06:59 14:59 Intake Total 899.167 / 899.167 600 / 1499.167 Output Total 950 / 2525 1000 / 3525 600 / 600 Balance -50.833 / -1625.833 -400 / -2025.833 -600 / -600 Physical Exam Narrative: EXAM NARRATIVE: EXAM NARRATIVE: General: No acute distress, AO x3, NC oxygen supplementation HEENT: PERRLA, pupils bilaterally equal and reactive Chest:Bronchial breath sounds b/l ,decreased air entry, equal good air entry bilaterally, no more fine basal crackles CVS: S1-S2 regular, no murmurs, no tachycardia, no gallops, no rubs Abdomen: Soft, nontender, no organomegaly, bowel sounds present, morbidly obese Neuro: No focal deficits, no facial deformity, AO x3, power 5/5 in all limbs Data : 11/20/20 08:58 11/19/20 05:45 A&P Assessment and plan (1) Hypertensive urgency: Status: Acute (2) Retroperitoneal hematoma: Status: Acute (3) Kidney laceration, left: Status: Acute Qualifiers: Encounter type: initial encounter Qualified Code(s): S37.032A - Laceration of left kidney, unspecified degree, initial encounter Additional A&P Information Hypertensive urgency: Blood pressure little better today. Still elevated. Goal blood pressure now less than 140/90 mmHg. Continue with amlodipine 10 mg daily. Start patient on metoprolol 25 mg twice daily with first dose right now. Continue with hydralazine 10 mg IV every 4 hours as needed. Echocardiogram results appreciated with EF of 65% with grade 2 diastolic dysfunction. Retroperitoneal hematoma/left kidney laceration: Treatment as per Dr. Duncan. We will repeat CBC and CMP tomorrow morning. Cardiac diet. Full code. No anticoagulation in view of retroperitoneal hematoma. Patient stable to be discharged from internal medicine point of view. Patient to go on amlodipine 10 mg daily, metoprolol succinate 50 mg extended release on ce daily. Have contacted neonatal social worker for arranging primary care provider. Attestations Medical Necessity Statement*: As per primary team. Time Spent in Patient Care: Greater than 35 minutes (>than 50% of time spent in counselling and/or direct pt care on unit) . 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
--- NOTE | 2020-11-20 10:58 | PM.DCS ---
Discharge Providers Date of Admission: 11/17/20 00:15 Date of Discharge: November 20, 2020 Attending Provider at Admission: Altagracia Acevedo MD Attending Provider at Discharge: Altagracia Acevedo MD Diagnoses at Discharge Discharge Diagnosis (1) Hypertensive urgency: Status: Acute (2) Retroperitoneal hematoma: Status: Acute (3) Kidney laceration, left: Status: Acute Permanent problem details: Etiology unclear. Will need reimaging after resolution of retroperitoneal hematoma for reassessment of renal anatomy. Qualifiers: Encounter type: initial encounter Qualified Code(s): S37.032A - Laceration of left kidney, unspecified degree, initial encounter Reason for Visit Reason for Visit: ab pain Hospital Course Hospital Course Patient was seen in the emergency department for sudden onset of left abdominal/flank pain on 11/17/2020. CT scan demonstrated a large left retroperitoneal hematoma with evidence of a left upper pole posterior renal laceration in the absence of any significant noted trauma. He was hemodynamically stable and admitted for further evaluation and supportive care. His hemoglobin dropped significantly but he did not require transfusion. It stabilized out at the low point of 8.2 but on day of discharge it increased to approximately 9. Did have problems with his blood pressure while hospitalized and Dr. Clifford was consulted for medical management which substantially improved his blood pressure picture. He has made recommendations for follow-up with primary care (Dr. Browning) as well as hypertension medication at discharge. Physical Exam Const: COMMON NORMALS: no acute distress, alert and well nourished GENERAL APPEARANCE: well kempt and well developed ORIENTATION/CONSCIOUSNESS: not confused HENMT: COMMON NORMALS: normocephalic and atraumatic HEAD & SCALP: normocephalic and atraumatic Eye: COMMON NORMALS: no scleral icterus Neck/C-Spine: COMMON NORMALS: full ROM GENERAL: Yes normal visual inspection Resp: COMMON NORMALS: normal respiratory effort EFFORT & INSPECTION: No labored and No Actively coughing GI: OTHER: Abdomen is rounding machine tender but better. Cute surgical abdomen. Extremity: COMMON NORMALS: no clubbing, cyanosis or edema Neuro: COMMON NORMALS: no focal motor deficits SENSORIUM/ORIENTATION: Yes alert Psych: COMMON NORMALS: mental status grossly normal APPEARANCE: Yes grossly normal and Yes well kempt ATTITUDE: Yes calm and Yes engaged Skin: COMMON NORMALS: no rashes or lesions noted and no jaundice GENERAL SKIN EXAM: no rashes or lesions noted Discharge Data Data Completed and Pending: Completed Studies During Hospitalization Category Date Time Status CT abdomen pelvis w con* [id number] Urge nt Cat Scan 11/16/20 22:33 Completed XR KUB portable 7 [id number] Stat Exams 11/16/20 22:16 Completed CV echo complete* [id number] Routine Ultrasound 11/19/20 10:54 Completed Pending at discharge Category Date Time Status Complete Blood Co unt w/Auto AM LABS Lab 11/21/20 04:00 Ordered Comprehensive Met abolic Panel AM LA BS Lab 11/21/20 04:00 Ordered Labs from last 24 hours 11/20/20 08:58 WBC 13.5 H RBC 3.08 L Hgb 8.9 L Hct 27.7 L MCV 89.9 MCH 28.9 MCHC 32.1 RDW 12.4 Plt Count 298 MPV 10.9 H Neut % (Auto) 85.3 Lymph % (Auto) 7.8 [place] % (Auto) 5.1 Eos % (Auto) 0.9 Baso % (Auto) 0.5 Neut # (Auto) 11.55 H Lymph # (Auto) 1.1 [place] # (Auto) 0.7 Eos # (Auto) 0.1 Baso # (Auto) 0.1 Nucleated RBC % (a uto) 0 Nucleated RBCs # 0.0 Vitals: Last Vital Signs Temp 98.9 F 11/20/20 08:00 Pulse 88 11/20/20 08:00 Resp 16 11/20/20 08:59 BP 154/96 11/20/20 08:00 Pulse Ox 95 11/20/20 08:00 Discharge Plan Discharge Patient Disposition: Home Condition: Stable Prescriptions: Held aspirin 325 mg Tablet 325 mg PO QAM RF: 0 Hold Instructions: Continue holding until reevaluated with urology. No Action Norvasc 5 mg Tablet 5 mg PO DAILY@08 RF: 0 Discharge Orders: Discharge Order (Routine); Ordered 11/20/20 Ordered By: Fidencio Duncan Referrals: Sarah Browning DO [Physician] - 11/29/20 10:30 am Discharge Diet: Usual diet Discharge Activity: Limit activity as instructed Activity Restrictions/Additional Instructions: 1. No lifting >10 pounds until reevaluated. 2. It will be very important to control your blood pressure. Please check it on a regular basis at home to confirm BP control. 3. I will plan on seeing you back in my office late next week for reevaluation. Please return to the emergency department for severe increasing pain or other concerning symptoms. Discharge Attestations Time Spent in Discharge Care*: less than 30 min Quality Metrics Clinical Quality Measures During this hospital stay, did patient experience: None Coding Level of Care Code Acute Winding Inspector And Tester for g Fwd Exam Comprehensive Diagnoses Hypertensive urgency I16.0 Retroperitoneal hematoma K66.1 Kidney laceration, left S37.032A Encounter type: initial encounter
--- NOTE | 2020-11-20 15:11 | PC.NURSE ---
Patient given discharge instructions. All questions answered. Patient discharged at this time in the care of his girlfriend in stable condition.
--- NOTE | 2020-11-24 15:17 | PC.SOCIAL ---
Tried to make an appt at [facility] for patient however he has a large bill that would need to be paid first. Called and updated patient of this and asked if he would like to be set up elsewhere however, he has refused at this time.
== END 2020-11-20 15:14 | disposition home or self-care (01) | DRG 698 ==
LOC: ER 11-17 01:01 → MEDSURG 11-17 01:22
PROVIDERS: Nurse Practitioner Family; Student in an Organized Health Care Education/Training Program; Urology; Admitting Provider Hospitalist; Emergency Provider Emergency Medicine; Visit Provider Hospitalist
DX: S37.032A Laceration of left kidney, unspecified degree, initial encounter (principal); K66.1 Hemoperitoneum; X58.XXXA Exposure to other specified factors, initial encounter; Y93.9 Activity, unspecified; Y92.009 Unspecified place in unspecified non-institutional (private) residence as the place of occurrence of the external cause; I16.0 Hypertensive urgency; I10 Essential (primary) hypertension; F17.210 Nicotine dependence, cigarettes, uncomplicated
CPT/HCPCS: 12345; 36415; 74018; 74177; 80053; 83690; 85014; 85018; 85025; 86850; 86900; 93306; 99283; J0360; J1200; J1885; J2270; J2405; J7030; Q9967

== ENCOUNTER → 2020-11-24 10:02 | Outpatient (BNVA) | payer SELFPAY | PROVIDERS: Visit Provider Urology | DX: K66.1 Hemoperitoneum (principal); S37.032A Laceration of left kidney, unspecified degree, initial encounter; X58.XXXA Exposure to other specified factors, initial encounter | CPT/HCPCS: 85025 ==

== ENCOUNTER → 2020-12-08 08:08 | Outpatient (BNVA) | payer SELFPAY | PROVIDERS: Visit Provider Urology | DX: K66.1 Hemoperitoneum (principal); S37.032A Laceration of left kidney, unspecified degree, initial encounter; X58.XXXA Exposure to other specified factors, initial encounter | CPT/HCPCS: 85025 ==

== ENCOUNTER 2021-02-03 02:09 | Emergency (ER) | payer SELFPAY ==
[2021-02-03 02:17] VITALS: BP 172/126; PULSE 102; RESP 24; TEMP 38.1; O2SAT 97; BMI 26.6
--- NOTE | 2021-02-03 02:24 | ED_ITS ---
HPI - Fever General: Chief Complaint: Fever Stated Complaint: swollen throat, headache, fever Time Seen by Provider: 02/03/21 02:12 Source: patient Mode of arrival: ambulatory Limitations: no limitations History of Present Illness: HPI Narrative: 40-year-old male states over the last 2 days he has had body aches along with sore throat and fevers. He is febrile here to 100.6. He states his throat pain is sharp in nature and rates it a 7 out of 10. States has had strep in the past and this is the same. She had a very mild cough. Denies any shortness of breath. He is handling his secretions well. He has no voice change. Denies any worsening improving factors. Associated symptoms: Deny abdominal pain, chest pain, diarrhea, dysuria, headache(s), nausea or vomiting Review of Systems Const: Reports: fever(s) and body aches Eyes: Denies: blurry vision or eye discomfort ENMT: Reports: throat pain Card: Denies: chest pain Resp: Denies: dyspnea GI: Denies: abdominal pain, nausea, vomiting or diarrhea : Denies: dysuria Musc: Denies: neck pain or back pain Skin/Breast: Denies: rash Neuro: Denies: headache(s) Psych: Denies: depression Roby/Lymph: Denies: easy bruising All/Imm: Denies: urticaria PFSH ED PFSH: Medical History Cellulitis Hypertension Surgical History History of vasectomy Family History Denies family history of CAD (coronary artery disease) Bleeding disorder Social History Smoking and tobacco status: current every day smoker Alcohol intake: never Housing: House Current occupational status: unemployed Physical Exam Const: COMMON NORMALS: no acute distress, patient oriented x3 and healthy appearing HENMT: COMMON NORMALS: normocephalic and atraumatic HEAD & SCALP: normocephalic and atraumatic OTHER: Oropharynx erythema with tonsillar pus pockets. No abscess formation no uvula deviation. No problems handling secretions. He does have palpable cervical lymph nodes. Eye: COMMON NORMALS: Equal, round and reactive pupils present and EOMs intact bilaterally PUPIL: Yes Equal, round and reactive pupils present Neck/C-Spine: COMMON NORMALS: full ROM and supple Chest: COMMONS NORMALS: normal inspection of the chest and normal palpation of entire chest wall Resp: COMMON NORMALS: normal respiratory effort, No retractions, No use of accessory muscles and clear to auscultation bilaterally AUSCULTATION: clear to auscultation bilaterally Cardio: COMMON NORMALS: regular rate, regular rhythm and No murmurs present (Cardio) RATE: regular rate RHYTHM: regular rhythm GI: COMMON NORMALS: Normal to inspection, nondistended, normoactive bowel sounds present, Soft to palpation, non-tender and no masses PALPATION: Yes Soft to palpation Extremity: COMMON NORMALS: normal to inspection and full ROM Neuro: COMMON NORMALS: patient oriented x3, moves all extremities and no focal motor deficits Psych: COMMON NORMALS: mental status grossly normal, Normal thought process present and cooperative THOUGHT PROCESS: Normal thought process present Skin: COMMON NORMALS: no rashes or lesions noted and no wounds GENERAL SKIN EXAM: no rashes or lesions noted Course Vital Signs: Vital signs: Vital Signs Temperature 100.6 F H 02/03/21 02:17 Pulse Rate 102 H 02/03/21 02:17 Respiratory Rate 24 H 02/03/21 02:17 Blood Pressure 172/126 02/03/21 02:17 Pulse Oximetry 97 02/03/21 02:17 MDM - Fever MDM Narrative: Medical decision making narrative: Patient presents here with fever and symptoms consistent with strep throat. He does have erythema with exudates and some cervical lymph nodes. He has no difficulty swallowing no signs of abscess. Patient given Decadron here and will start on Keflex. He is to follow-up his PCP and return if worsening. He understands agrees to plan. Discharge Plan Discharge Patient Disposition: Home Clinical Impression: Strep throat Condition: Stable Prescriptions: New cephalexin 500 mg capsule 500 mg PO QID 7 Days Qty: 28 RF: 0 No Action metoprolol succinate 50 mg tablet extended release 24 hr 100 mg PO DAILY RF: 0 sulfamethoxazole-trimethoprim [Bactrim DS] 800-160 mg tablet 1 tab PO BID RF: 0 aspirin 325 mg Tablet 325 mg PO QAM RF: 0 Hold Instructions: Continue holding until reevaluated with urology. 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
[2021-02-03] MEDS: dexamethasone 10 mg/mL INJ IM (02:30)
[2021-02-03] MEDS: ibuprofen 800 mg tablet PO (02:32)
[2021-02-03] MEDS: cephALEXin 500 mg Capsule PO (02:32)
[2021-02-03 02:37] VITALS: BP 159/112; PULSE 101; O2SAT 98
== END 2021-02-03 02:38 | disposition home or self-care (01) ==
PROVIDERS: Emergency Provider Emergency Medicine
DX: J02.0 Streptococcal pharyngitis (principal); I10 Essential (primary) hypertension; F17.210 Nicotine dependence, cigarettes, uncomplicated
CPT/HCPCS: 96372; 99283; J1100

== ENCOUNTER 2021-02-05 01:45 | Emergency (ER) | payer SELFPAY ==
[2021-02-05 01:52] VITALS: BP 161/94; PULSE 102; RESP 18; TEMP 38.3; O2SAT 98; BMI 26.6
--- NOTE | 2021-02-05 01:57 | ED_ITS ---
HPI - General Adult General: Chief complaint: Fever Stated complaint: fever, sore throat Time Seen by Provider: 02/05/21 01:49 Source: patient Mode of arrival: ambulatory Limitations: no limitations History of Present Illness: HPI narrative: 40-year-old male seen here 2 days ago for strep throat. He was given Decadron then and prescribed Keflex. He states he never filled his Keflex prescription and hasn't taken any antibiotics at home. He states he is still having pain and throat swelling. He denies any worsening improving factors. He does have pain with swallowing. He is handling his secretions well. Denies fever Associated symptoms: Deny chest pain, dyspnea, headache(s), nausea, rash or vomiting Review of Systems Const: Denies: fever(s), chills, body aches or change in appetite Eyes: Denies: blurry vision or eye discomfort ENMT: Reports: throat pain, enlarged tonsils and odynophagia Card: Denies: chest pain Resp: Denies: dyspnea GI: Denies: abdominal pain, nausea, vomiting or diarrhea : Denies: dysuria Musc: Denies: neck pain or back pain Skin/Breast: Denies: rash Neuro: Denies: headache(s) Psych: Denies: depression Roby/Lymph: Denies: easy bruising All/Imm: Denies: urticaria PFSH ED PFSH: Medical History Cellulitis Hypertension Surgical History History of vasectomy Family History Denies family history of CAD (coronary artery disease) Bleeding disorder Social History Smoking and tobacco status: current every day smoker Alcohol intake: never Housing: House Current occupational status: unemployed Physical Exam Const: COMMON NORMALS: no acute distress, patient oriented x3 and healthy appearing HENMT: COMMON NORMALS: normocephalic and atraumatic HEAD & SCALP: normocephalic and atraumatic OTHER: Tonsillar erythema and hypertrophy bilateral with exudates no uvula deviation patient handling secretions well no abscess Eye: COMMON NORMALS: Equal, round and reactive pupils present and EOMs intact bilaterally PUPIL: Yes Equal, round and reactive pupils present Neck/C-Spine: COMMON NORMALS: full ROM and supple Chest: COMMONS NORMALS: normal inspection of the chest and normal palpation of entire chest wall Resp: COMMON NORMALS: normal respiratory effort, No retractions, No use of accessory muscles and clear to auscultation bilaterally AUSCULTATION: clear to auscultation bilaterally Cardio: COMMON NORMALS: regular rate, regular rhythm and No murmurs present (Cardio) RATE: regular rate RHYTHM: regular rhythm GI: COMMON NORMALS: Normal to inspection, nondistended, normoactive bowel sounds present, Soft to palpation, non-tender and no masses PALPATION: Yes Soft to palpation Extremity: COMMON NORMALS: normal to inspection and full ROM Neuro: COMMON NORMALS: patient oriented x3, moves all extremities and no focal motor deficits Psych: COMMON NORMALS: mental status grossly normal, Normal thought process present and cooperative THOUGHT PROCESS: Normal thought process present Skin: COMMON NORMALS: no rashes or lesions noted and no wounds GENERAL SKIN EXAM: no rashes or lesions noted Course Vital Signs: Vital signs: Vital Signs Temperature 99.4 F 02/05/21 02:53 Pulse Rate 97 02/05/21 02:53 Respiratory Rate 18 02/05/21 02:53 Blood Pressure 143/91 02/05/21 02:53 Pulse Oximetry 95 02/05/21 02:53 MDM - General Adult MDM Narrative: Medical decision making narrative: Patient presents with likely strep throat. He has not been taking his antibiotics. He has no signs of peritonsillar abscess. He has no airway compromise. He is to fill his prescription and is stable for discharge. He is return if worsening. Lab Data: Labs: Lab Results 02/05/21 Range/Units 02:13 Monoscreen Negative (Negative) Discharge Plan Discharge Patient Disposition: Home Clinical Impression: Strep throat Condition: Stable Prescriptions: No Action metoprolol succinate 50 mg tablet extended release 24 hr 100 mg PO DAILY RF: 0 sulfamethoxazole-trimethoprim [Bactrim DS] 800-160 mg tablet 1 tab PO BID RF: 0 aspirin 325 mg Tablet 325 mg PO QAM RF: 0 Hold Instructions: Continue holding until reevaluated with urology. cephalexin 500 mg capsule 500 mg PO QID 7 Days Qty: 28 RF: 0 Discharge Orders: Discharge ED (Routine); Ordered 02/05/21 Ordered By: Lolis Ferro Discharge Diet: Advance as tolerated Discharge Activity: Resume usual activity Patient Instructions: Strep Throat (ED) Coding Level of Care Code ED Interactive Marketing Strategist for [facility] Fwd Exam Comprehensive
[2021-02-05] MEDS: cephALEXin 500 mg Capsule PO (01:59)
[2021-02-05] MEDS: acetaminophen 500 mg Tablet 1000 MG PO (02:23)
[2021-02-05] MEDS: ibuprofen 800 mg tablet PO (02:23)
[2021-02-05 02:39] LABS: Monoscreen Negative (Negative)
[2021-02-05 02:53] VITALS: BP 143/91; PULSE 97; RESP 18; TEMP 37.4; O2SAT 95
== END 2021-02-05 02:53 | disposition home or self-care (01) ==
PROVIDERS: Emergency Provider Emergency Medicine
DX: J02.0 Streptococcal pharyngitis (principal); Z79.82 Long term (current) use of aspirin; I10 Essential (primary) hypertension; F17.210 Nicotine dependence, cigarettes, uncomplicated
CPT/HCPCS: 86308; 99283

== ENCOUNTER 2021-04-18 22:14 | Emergency (ER) | payer SELFPAY ==
[2021-04-18 22:34] VITALS: BP 168/103; PULSE 86; RESP 16; TEMP 37.3; O2SAT 97; BMI 26.6
--- NOTE | 2021-04-18 22:53 | XRR_ITS ---
PROCEDURE INFORMATION: Exam: XR Chest Exam date and time: 04/18/2021 10:53 PM Age: 40 years old Clinical indication: Cough and fever; Additional info: Fever cough TECHNIQUE: Imaging protocol: XR of the chest. Views: 1 view. COMPARISON: CR Chest 1 [place] [id number] 07/16/2019 9:21 PM FINDINGS: Lungs: Unremarkable. No consolidation. Pleural spaces: Unremarkable. No pleural effusion. No pneumothorax. Heart/Mediastinum: Unremarkable. No cardiomegaly. Bones/joints: Unremarkable. XR/XR chest 1V portable [id number] IMPRESSION: No acute findings.
--- NOTE | 2021-04-18 22:53 | ED_ITS ---
HPI - Back Pain/Injury General: Chief Complaint: Back Pain/Injury Stated Complaint: chest pain, fever Time Seen by Provider: 04/18/21 22:46 History of Present Illness: HPI Narrative: Patient comes in today with left upper quadrant abdominal pain. Patient has a history of a left renal hematoma. Patient appears unwell and in moderate pain. Patient states that it is similar to his previous pain with his hematoma. Patient is alert and responds to questioning. Patient reports pain started last night. Patient denies any falls or injury. Associated symptoms: Reports abdominal pain (Left upper quadrant) Review of Systems General: Reports: 10 or more systems reviewed and unremarkable except in HPI and below GI: Reports: abdominal pain (Left upper quadrant) [facility] ED PFSH: Medical History Cellulitis Hypertension Surgical History History of vasectomy Family History Denies family history of CAD (coronary artery disease) Bleeding disorder Social History Smoking and tobacco status: current every day smoker Alcohol intake: never Housing: House Current occupational status: unemployed Physical Exam Const: COMMON NORMALS: no acute distress and patient oriented x3 GENERAL APPEARANCE: cooperative HENMT: COMMON NORMALS: normocephalic and Normal external nose present HEAD & SCALP: normal to inspection and normocephalic NOSE: Normal external nose present MOUTH: Normal oral and palatal mucosa present THROAT: posterior oropharynx normal Eye: GENERAL EYE: appearance normal, both eyes and all related structures Neck/C-Spine: COMMON NORMALS: full ROM Lymph: LYMPHATIC: no lymphadenopathy noted Chest: COMMONS NORMALS: normal inspection of the chest Resp: COMMON NORMALS: normal respiratory effort EFFORT & INSPECTION: Yes able to speak in complete sentences Cardio: COMMON NORMALS: regular rate and regular rhythm RATE: regular rate RHYTHM: regular rhythm GI: COMMON NORMALS: Soft to palpation AUSCULTATION: Yes normoactive bowel sounds PALPATION: Yes Soft to palpation and Yes Tenderness to palpation present (GI) (Mild left upper quadrant.) Back/Pelvis: COMMON NORMALS: thoracic and lumbar spine normal to inspection Extremity: COMMON NORMALS: normal to inspection Neuro: COMMON NORMALS: patient oriented x3 and moves all extremities Psych: COMMON NORMALS: mental status grossly normal and cooperative Skin: COMMON NORMALS: no rashes or lesions noted GENERAL SKIN EXAM: no rashes or lesions noted Course ED course: 1205, further discussion with the patient he did admit to using K2 which most likely stems most of these problems the patient is having at this time. We will get patient a milligram Ativan to help him relax encourage plenty of fluids healthy diet follow-up with primary care. Vital Signs: Vital signs: Vital Signs Temperature 99.1 F 04/18/21 22:34 Pulse Rate 77 04/19/21 00:09 Respiratory Rate 17 04/19/21 00:09 Blood Pressure 146/111 04/19/21 00:09 Pulse Oximetry 100 04/19/21 00:09 MDM - Back Pain/Injury MDM Narrative: Medical decision making narrative: Patient comes in with complaints of pain in the back. Patient was concerned that he may be having a cardiac issue or that his hematoma on his kidney was getting worse. On exam a bdomen is soft with no specific tenderness on palpation. Respirations were even lungs were clear to auscultation. Skin was warm and dry. Patient seemed altered in his response to questions. Differential diagnosis includes not limited to adverse effect of drug, retroperitoneal hemorrhage/hematoma, ACS. Laboratory values were unremarkable. Troponin was normal. CPK was normal. CT scan noticed improvement in the hematoma from prior injury 6 months ago without any further significant abnormality. With further discussion with patient it did come out the patient did use some synthetic marijuana, K2, I discussed this with patient that often we cannot verify what is indicated to lately it has been described as something very similar to ecstasy, MDMA, but we cannot guarantee that that is what is in it. Most likely this can cause some cardiac stress, anxiety, and restlessness. We treated the patient's pain with 2 mg of morphine while he was in the ER, patient was given 1 mg Ativan to take when he got home to help him relax and allow his body to washout the K2. I encourage patient to drink plenty of fluids eat healthy and avoid any further synthetic drug use. Patient reported understanding of care plan and need for follow-up or return to the ER. Lab Data: Labs: Lab Results 04/18/21 04/18/21 04/18/21 Range/Units 23:02 23:02 23:02 WBC 6.2 (4.0-10.0) 10^3/ uL RBC 4.39 (4.1-5.3) 10^6/u L Hgb 12.4 (11.7-16.6) g/dL Hct 37.5 L (42.0-52.0) % MCV 85.4 (80-94) fL MCH 28.2 (28.0-34.0) pg MCHC 33.1 (30.0-36.0) g/dL RDW 14.7 (12.1-15.1) % Plt Count 199 (130-400) 10^3/c mm MPV 10.5 H (7.4-10.4) fL Neut % (Auto) 82.7 % Lymph % (Auto) 6.5 % [place] % (Auto) 8.6 % Eos % (Auto) 1.1 % Baso % (Auto) 0.6 % Neut # (Auto) 5.11 (1.8-7.7) 10^3/u L Lymph # (Auto) 0.4 L (0.8-4.8) 10^3/u L [place] # (Auto) 0.5 (0.2-0.9) 10^3/u L Eos # (Auto) 0.1 (0.0-0.8) 10^3/u L Baso # (Auto) 0.0 (0.0-0.1) 10^3/u L Nucleated RBC % (a uto) 0 % Nucleated RBCs # 0.0 /100WBC Sodium Cancelled Potassium Cancelled Chloride Cancelled Carbon Dioxide Cancelled Anion Gap Cancelled BUN Cancelled Creatinine Cancelled GFR Calculation Cancelled Glucose Cancelled Calculated Osmolal ity Cancelled Calcium Cancelled Total Bilirubin Cancelled AST Cancelled ALT Cancelled Alkaline Phosphata se Cancelled Creatine Kinase (39-308) U/L Troponin T Gen 5 n g/L 6 (0-15) ng/L Total Protein Cancelled Albumin Cancelled Globulin Cancelled 04/18/21 04/18/21 Range/Units 23:45 23:45 WBC (4.0-10.0) 10^3/ uL RBC (4.1-5.3) 10^6/u L Hgb (11.7-16.6) g/dL Hct (42.0-52.0) % MCV (80-94) fL MCH (28.0-34.0) pg MCHC (30.0-36.0) g/dL RDW (12.1-15.1) % Plt Count (130-400) 10^3/c mm MPV (7.4-10.4) fL Neut % (Auto) % Lymph % (Auto) % [place] % (Auto) % Eos % (Auto) % Baso % (Auto) % Neut # (Auto) (1.8-7.7) 10^3/u L Lymph # (Auto) (0.8-4.8) 10^3/u L [place] # (Auto) (0.2-0.9) 10^3/u L Eos # (Auto) (0.0-0.8) 10^3/u L Baso # (Auto) (0.0-0.1) 10^3/u L Nucleated RBC % (a uto) % Nucleated RBCs # /100WBC Sodium 132 L Potassium 4.2 Chloride 100 Carbon Dioxide 25 Anion Gap 11.2 BUN 14 Creatinine 1.0 GFR Calculation 82.3 L Glucose 83 Calculated Osmolal ity 274 L Calcium 8.3 L Total Bilirubin 0.2 AST 20 ALT 17 Alkaline Phosphata se 84 Creatine Kinase 90 (39-308) U/L Troponin T Gen 5 n g/L (0-15) ng/L Total Protein 6.1 L Albumin 3.8 Globulin 2.3 Discharge Plan Discharge Patient Disposition: Home Clinical Impression: Adverse effect of drug Qualifiers: Encounter type: initial encounter Qualified Code(s): T50.905A - Adverse effect of unspecified drugs, medicaments and biological substances, initial encounter Condition: Stable Prescriptions: No Action metoprolol succinate 50 mg tablet extended release 24 hr 100 mg PO DAILY RF: 0 sulfamethoxazole-trimethoprim [Bactrim DS] 800-160 mg tablet 1 tab PO BID RF: 0 aspirin 325 mg Tablet 325 mg PO QAM RF: 0 Hold Instructions: Continue holding until reevaluated with urology. Discharge Orders: Discharge ED (Routine); Ordered 04/19/21 Ordered By: Rommel Perales Discharge Diet: Usual diet Discharge Activity: Increase activity as tolerated Patient Instructions: Opioid Safety Activity Restrictions/Additional Instructions: Drink plenty of water. Continue with routine medications as directed. Avoid the use of other substances unless instructed by physician. Follow-up with primary care in 3 days for recheck. Return to the ER for new concerns or worsening symptoms. Coding Level of Care Code ED [employer] Exam Comprehensive
--- NOTE | 2021-04-18 22:58 | ECG_ITS ---
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 Measurements Intervals [place] Rate: 82 P: 24 CT: 145 QRS: 80 QRSD: 106 T: 66 QT: 334 QTc: 390 Interpretive Statements SINUS RHYTHM Compared to ECG 07/17/2019 00:52:12 No significant changes Electronically Signed On 04-19-2021 17:32:23 CDT by Brandyn Mckinley M.D. [id number] f
--- NOTE | 2021-04-18 23:01 | CTR_ITS ---
PROCEDURE INFORMATION: Exam: CT Abdomen And Pelvis With Contrast Exam date and time: 04/18/2021 11:01 PM Age: 40 years old Clinical indication: Abdominal pain; Localized; Left upper quadrant (luq); Patient HX: Luq pain. History of left renal laceration with hematoma. ; Additional info: Luq pain, history of renal hematoma left side TECHNIQUE: Imaging protocol: Computed tomography of the abdomen and pelvis with contrast. Radiation optimization: All CT scans at this facility use at least one of these dose optimization techniques: automated exposure control; mA and/or kV adjustment per patient size (includes targeted exams where dose is matched to clinical indication); or iterative reconstruction. Contrast material: OMNI 300; Contrast volume: 95 ml; Contrast route: INTRAVENOUS (IV); COMPARISON: CT abdomen pelvis w con* [id number] 11/16/2020 11:09 PM RADIATION DOSE METRICS: Total DLP (mGy-cm): 1394.28 FINDINGS: Lungs: The lung bases are clear. No effusion Liver: Normal. No mass. Gallbladder and bile ducts: No wall thickening, pericholecystic fluid or stones. Pancreas: Normal. No ductal dilation. Spleen: Normal. No splenomegaly. Adrenal glands: Normal. No mass. Kidneys and ureters: 1.5 cm right renal cyst. 3 mm non-obstructing left renal pelvis stone. 5 x 3.3 by 4.9 cm left renal hyperdense fluid collection, previously 7.5 x 10.2 by 9.2 cm. . Stomach and bowel: Moderate stool in the colon without bowel dilation. Appendix: No evidence of appendicitis. Intraperitoneal space: Unremarkable. No free air. No significant fluid collection. Vasculature: Unremarkable. No abdominal aortic aneurysm. Lymph nodes: Unremarkable. No enlarged lymph nodes. Urinary bladder: Unremarkable as visualized. Reproductive: Unremarkable as visualized. Bones/joints: Unremarkable. No acute fracture. Soft tissues: Unremarkable. CT/CT abdomen pelvis w con* [id number] IMPRESSION: 1. 5 x 3.3 by 4.9 cm left renal hyperdense subcapsular fluid collection, previously a perinephric hematoma measuring 7.5 x 10.2 by 9.2 cm. . 2. Moderate Constipation. 3. 3 mm non-obstructing left renal pelvis stone. COMMENTS: Consistent with the [employer]'s Incidental Findings Committee white paper (J Am Janet Radiol 2018): Any incidental renal lesion less than 1 cm or classified as too small to characterize, or any incidental cystic renal lesion characterized as simple-appearing, is likely benign. No follow-up imaging is recommended for these lesions per consensus recommendations based on imaging criteria. Radiation Dose CTDIVOL = (mGy): DLP = 1394.28 (mGy-cm)
[2021-04-18] MEDS: iohexol 300 mg/mL 100 mL Btl IV (23:24)
[2021-04-18 23:26] LABS: Basophils % 0.6 %; Eosinophils # 0.1 10^3/uL (0.0-0.8); Eosinophils % 1.1 %; Hematocrit 37.5 % (42.0-52.0); Hemoglobin 12.4 g/dL (11.7-16.6); Lymphocytes # 0.4 10^3/uL (0.8-4.8); Lymphocytes % 6.5 %; Mean Corpuscular HGB Conc 33.1 g/dL (30.0-36.0); Mean Corpuscular Hemoglobin 28.2 pg (28.0-34.0); Mean Corpuscular Volume 85.4 fL (80-94); Mean Platelet Volume 10.5 fL (7.4-10.4); Monocytes # 0.5 10^3/uL (0.2-0.9); Monocytes % 8.6 %; Neutrophils # 5.11 10^3/uL (1.8-7.7); Neutrophils % 82.7 %; Nucleated Red Blood Cells % 0 %; Platelet Count 199 10^3/cmm (130-400); Red Blood Count 4.39 10^6/uL (4.1-5.3); Red Cell Distribution Width 14.7 % (12.1-15.1); White Blood Count 6.2 10^3/uL (4.0-10.0)
[2021-04-18 23:53] LABS: Troponin T (5th) Once 6 ng/L (0-15)
[2021-04-19 00:08] LABS: Alanine Aminotransferase 17 U/L (0-41); Albumin Level 3.8 g/dL (3.5-5.2); Alkaline Phosphatase 84 IU/L (40-130); Aspartate Amino Transferase 20 U/L (0-40); Blood Urea Nitrogen 14 mg/dL (6-20); Calcium 8.3 mg/dL (8.5-10.5); Carbon Dioxide 25 mmol/L (22-29); Chloride 100 mmol/L (98-107); Globulin 2.3 g/dL (1.3-4.6); Glomerular Filtration Rate 82.3 mL/min (90-130); Glucose 83 mg/dL (65-115); Osmolality Calculated 274 mOsm/kg (285-295); Sodium 132 mmol/L (136-145); Total Bilirubin 0.2 mg/dL (0.15-1.2); Total Protein 6.1 g/dL (6.6-8.7)
[2021-04-19 00:09] VITALS: BP 146/111; PULSE 77; RESP 17; O2SAT 100; O2SAT 97
[2021-04-19] MEDS: morphine 4 mg/mL SDV 1 mL 2 MG IVP (00:09)
[2021-04-19] MEDS: sodium chloride 0.9% 500 ML 999 ML IV (00:09)
[2021-04-19 00:10] LABS: Anion Gap 11.2 (5-19); Potassium 4.2 mmol/L (3.5-5.1)
[2021-04-19 00:24] LABS: Creatine Phosphokinase 90 U/L (39-308)
[2021-04-19] MEDS: LORazepam 1 mg Tablet PO (00:38)
[2021-04-19 01:02] VITALS: BP 132/92; PULSE 76; RESP 17; TEMP 37.1; O2SAT 96
== END 2021-04-19 01:04 | disposition home or self-care (01) ==
PROVIDERS: Emergency Provider Nurse Practitioner Family
DX: T88.7XXA Unspecified adverse effect of drug or medicament, initial encounter (principal); T50.905A Adverse effect of unspecified drugs, medicaments and biological substances, initial encounter; I10 Essential (primary) hypertension; F17.210 Nicotine dependence, cigarettes, uncomplicated
CPT/HCPCS: 71045; 74177; 80053; 82550; 84484; 85025; 87040; 93005; 96374; 99284; J2060; J2270; J7040; Q9967

== ENCOUNTER 2023-03-15 05:17 | Emergency (ER) | payer SELFPAY ==
[2023-03-15] VITALS (9 sets, daily range): BP systolic 142–190; BP diastolic 89–132; PULSE 77–104; RESP 18; TEMP 36.3; O2SAT 97–100; BMI 26.6
--- NOTE | 2023-03-15 05:30 | W.ED.ABDPA2 ---
Documented by User: Lolis Ferro MD 03/15/23 05:33 HPI - Abdominal Pain General: Chief Complaint: Abdominal Pain Stated Complaint: Fever\Pressure in ABD Time Seen by Provider: 03/15/23 05:27 Source: patient Mode of arrival: ambulatory Limitations: no limitations History of Present Illness: 42-year-old male states over the last few days he is had some flulike symptoms states he has had some chills he denies fever to me he is afebrile here. He states he had some fullness in his abdomen he denies really any pain he states he feels a Pressure in his left lower quadrant but denies any pain currently no vomiting no diarrhea he denies any dysuria he states he has been moving and doing a lot of strenuous work lately as well. Associated Symptoms: Denies chills, diarrhea, dysuria, fever(s), nausea and vomiting Review of Systems Const: Denies: fever(s) or chills ENMT: Denies: throat pain or dental pain Card: Denies: chest pain Resp: Denies: dyspnea GI: Reports: abdominal pain; Denies: nausea, vomiting or diarrhea : Denies: dysuria Musc: Denies: neck pain or back pain Skin/Breast: Denies: rash PFSH ED PFSH: Medical History Cellulitis Hypertension Surgical History History of vasectomy Family History Denies family history of CAD (coronary artery disease) Bleeding disorder Social History Smoking and tobacco status: current every day smoker Alcohol intake: never Substance/Drug Use: never Housing: House Current occupational status: unemployed Physical Exam Const: COMMON NORMALS: no acute distress, patient oriented x3 and healthy appearing HENMT: COMMON NORMALS: normocephalic and atraumatic HEAD & SCALP: normocephalic and atraumatic Eye: COMMON NORMALS: conjunctivae normal CONJUNCTIVA: Yes conjunctivae normal Neck/C-Spine: COMMON NORMALS: supple Chest: COMMONS NORMALS: normal inspection of the chest and normal palpation of entire chest wall Resp: COMMON NORMALS: normal respiratory effort, No retractions, No use of accessory muscles and clear to auscultation bilaterally AUSCULTATION: clear to auscultation bilaterally Cardio: COMMON NORMALS: regular rate, regular rhythm and No murmurs present (Cardio) RATE: regular rate RHYTHM: regular rhythm GI: COMMON NORMALS: Normal to inspection, nondistended, normoactive bowel sounds present, Soft to palpation, non-tender and no masses INSPECTION: No abdominal wall ecchymosis PALPATION: Yes Soft to palpation, No Guarding due to palpation present (GI) and No Rigid due to palpation Extremity: COMMON NORMALS: normal to inspection and full ROM Neuro: COMMON NORMALS: patient oriented x3, moves all extremities and no focal motor deficits Psych: COMMON NORMALS: mental status grossly normal, Normal thought process present and cooperative THOUGHT PROCESS: Normal thought process present Skin: COMMON NORMALS: no rashes or lesions noted and no wounds GENERAL SKIN EXAM: no rashes or lesions noted Course Vital Signs: Vital signs: Vital Signs Temperature 97.4 F L 03/15/23 05:24 Pulse Rate 83 03/15/23 06:33 Respiratory Rate 18 03/15/23 05:46 Blood Pressure 142/89 03/15/23 09:00 Pulse Oximetry 99 03/15/23 08:29 Oxygen Delivery Me thod Room Air 03/15/23 08:29 MDM - Abdominal Pain Lab Data 03/15/23 05:39 03/15/23 05:39 Labs/Radiology: Radiology Impressions Chest X-Ray 03/15/23 05:35 IMPRESSION: Streaky opacity at the lateral left base likely reflects atelectasis. KUB X-Ray 03/15/23 05:35 IMPRESSION: Moderate stool in the colon; query constipation. Abdomen/Pelvis CT 03/15/23 07:05 IMPRESSION: 1. There is asymmetric soft tissue thickening of the posterior left kidney raising concern for mass. This is poorly assessed on the provided noncontrast images. Recommend MRI of the abdomen renal mass protocol with and without contrast to better characterize. 2. Moderate stool in the ascending, transverse and descending colon. 3. Mild periportal/retroperitoneal lymphadenopathy. COMMENTS: 1. Consistent with the [employer]'s Incidental Findings Committee white paper (J Am Janet Radiol 2017): For any incidental adrenal lesion greater than or equal to 1 cm but less than or equal to 4 cm classified in this report as benign, likely benign, or containing fat (including classification as an adenoma or myelolipoma), no follow-up imaging is recommended per consensus recommendations based on imaging criteria. Further lab evaluation could be pursued if warranted based on clinical findings. 2. Consistent with the [employer]'s Incidental Findings Committee white paper (J Am Janet Radiol 2018): Any incidental renal lesion less than 1 cm or classified as too small to characterize, or any incidental cystic renal lesion characterized as simple-appearing, is likely benign. No follow-up imaging is recommended for these lesions per consensus recommendations based on imaging criteria. Laboratory Results WBC 6.1 10^3/uL (4.0-10.0) 03/15/23 05:39 RBC 4.82 10^6/uL (4.1-5.3) 03/15/23 05:39 Hgb 14.3 g/dL (11.7-16.6) 03/15/23 05:39 Hct 43.4 % (42.0-52.0) 03/15/23 05:39 MCV 90.0 fl (80-94) 03/15/23 05:39 MCH 29.7 pg (28.0-34.0) 03/15/23 05:39 MCHC 32.9 g/dL (30.0-36.0) 03/15/23 05:39 RDW 12.2 % (12.1-15.1) 03/15/23 05:39 Plt Count 208 10^3/cmm (130-400) 03/15/23 05:39 MPV 9.9 fL (7.4-10.4) 03/15/23 05:39 Neut % (Auto) 72.8 % 03/15/23 05:39 Lymph % (Auto) 17.4 % 03/15/23 05:39 Mcnairy % (Auto) 8.1 % 03/15/23 05:39 Eos % (Auto) 0.7 % 03/15/23 05:39 Baso % (Auto) 0.5 % 03/15/23 05:39 Neut # (Auto) 4.41 10^3/uL (1.8-7.7) 03/15/23 05:39 Lymph # (Auto) 1.1 10^3/uL (0.8-4.8) 03/15/23 05:39 Mcnairy # (Auto) 0.5 10^3/uL (0.2-0.9) 03/15/23 05:39 Eos # (Auto) 0.0 10^3/uL (0.0-0.8) 03/15/23 05:39 Baso # (Auto) 0.0 10^3/uL (0.0-0.1) 03/15/23 05:39 Nucleated RBC % (auto) 0 % 03/15/23 05:39 Nucleated RBCs # 0.0 /100WBC 03/15/23 05:39 Sodium 137 mmol/L (136-145) 03/15/23 05:39 Potassium 3.8 mmol/L (3.5-5.1) 03/15/23 05:39 Chloride 102 mmol/L (98-107) 03/15/23 05:39 Carbon Dioxide 27 mmol/L (22-29) 03/15/23 05:39 Anion Gap 11.8 (5-19) 03/15/23 05:39 BUN 17 mg/dL (6-20) 03/15/23 05:39 Creatinine 1.1 mg/dL (0.7-1.2) 03/15/23 05:39 GFR Calculation 73.1 mL/min (90-130) L 03/15/23 05:39 Glucose 90 mg/dL (65-115) 03/15/23 05:39 Calculated Osmolality 285 mOsm/kg (285-295) 03/15/23 05:39 Calcium 8.9 mg/dL (8.5-10.5) 03/15/23 05:39 Total Bilirubin 0.4 mg/dL (0.15-1.2) 03/15/23 05:39 AST 25 U/L (0-40) 03/15/23 05:39 ALT 25 U/L (0-41) 03/15/23 05:39 Alkaline Phosphatase 114 U/L (40-130) 03/15/23 05:39 Creatine Kinase 110 U/L (39-308) 03/15/23 05:39 Total Protein 6.6 g/dL (6.6-8.7) 03/15/23 05:39 Albumin 3.9 g/dL (3.5-5.2) 03/15/23 05:39 Globulin 2.7 g/dL (1.3-4.6) 03/15/23 05:39 Lipase 126 U/L (13-60) H 03/15/23 05:39 Urine Color Yellow (Yellow) 03/15/23 07:25 Urine Appearance Clear (CLEAR) 03/15/23 07:25 Urine pH 6 (5-7) 03/15/23 07:25 Ur Specific Carter 1.020 (1.005-1.030) 03/15/23 07:25 Urine Protein Neg (Negative) 03/15/23 07:25 Urine Glucose (UA) Norm (Normal) 03/15/23 07:25 Urine Ketones Negative (Negative) 03/15/23 07:25 Urine Blood Neg (Negative) 03/15/23 07:25 Urine Nitrate Negative (Negative) 03/15/23 07:25 Urine Bilirubin Neg (Negative) 03/15/23 07:25 Urine Urobilinogen Norm mg/dL (Negative) 03/15/23 07:25 Ur Leukocyte Esterase Trace (Negative) H 03/15/23 07:25 Urine RBC 0-4 /hpf (0-2) H 03/15/23 07:25 Urine WBC 5-10 /hpf (0-5) H 03/15/23 07:25 Ur Squamous Epith Cells Rare /hpf (0-5) 03/15/23 07:25 Calcium Oxalate Crystal 0-4 /hpf H 03/15/23 07:25 Amorphous Sediment Not Reportable 03/15/23 07:25 Urine Bacteria Trace /hpf (NONE) 03/15/23 07:25 Hyaline Casts 0-4 /lpf H 03/15/23 07:25 Urine Mucus 1+ /hpf 03/15/23 07:25 SARS-CoV-2 Ag (Rapid) negative (Negative) 03/15/23 05:52 Discharge Plan Discharge Patient Disposition: Home Clinical Impression: HTN (hypertension), Abdominal pain, Constipation Condition: Stable Prescriptions: New ondansetron HCl 4 mg tablet 4 mg PO Q6H PRN (Reason: nausea and vomiting) Qty: 10 0RF Toprol XL 50 mg tablet extended release 24 hr 50 mg PO DAILY Qty: 30 0RF No Action metoprolol succinate 50 mg tablet extended release 24 hr 50 mg PO DAILY aspirin 325 mg Tablet 325 mg PO Q6H PRN (Reason: Headache) Hold Instructions: Continue holding until reevaluated with urology. Discharge Orders: Discharge ED (Routine); Ordered 03/15/23 Ordered By: Estevan Melchor Discharge Diet: Usual diet Patient Instructions: Abdominal Pain (ED), Opioid Safety, Pain Management Activity Restrictions/Additional Instructions: You were seen today for abdominal discomfort CT showed constipation. There is also questionable Sign Out Sign Out Data: Patient Sign Out occurred on 03/15/23 at 06:31. Patient's care was discussed, and care was transferred from to Estevan Melchor DO. Coding Level of Care Code ED Packer Denture for Chg Fwd Documented by User: Estevan Melchor DO 03/15/23 11:31 HPI - Abdominal Pain General: Chief Complaint: Abdominal Pain Stated Complaint: Fever\Pressure in ABD Time Seen by Provider: 03/15/23 05:27 [facility] ED PFSH: Medical History Cellulitis Hypertension Surgical History History of vasectomy Family History Denies family history of CAD (coronary artery disease) Bleeding disorder Social History Smoking and tobacco status: current every day smoker Alcohol intake: never Substance/Drug Use: never Housing: House Current occupational status: unemployed Course Vital Signs: Vital signs: Vital Signs Temperature 97.4 F L 03/15/23 05:24 Pulse Rate 83 03/15/23 06:33 Respiratory Rate 18 03/15/23 05:46 Blood Pressure 142/89 03/15/23 09:00 Pulse Oximetry 99 03/15/23 08:29 Oxygen Delivery Me thod Room Air 03/15/23 08:29 MDM - Abdominal Pain Medical Decision Making Patient states he is feeling much better. He was able to eat his significant other brought Jessica's meal and form he ate that without any difficulty. Discussed with him the findings on the imaging shows constipation there is an old finding of questionable area of the posterior left kidney he states he has been told about that before he had a bleed there and was evaluated. I did encourage him to follow-up with his primary care doctor to see if further imaging is required at this time his kidney function is good. He is feeling much better we will discharge him home and have him follow-up with his primary care return the emergency room if he has further problems clinical diet for today and tomorrow then advance as tolerated. Medical Records I reviewed the patient's medical records. Lab Data I reviewed the patient's lab results. 03/15/23 05:39 03/15/23 05:39 Labs/Radiology: Radiology Impressions Chest X-Ray 03/15/23 05:35 IMPRESSION: Streaky opacity at the lateral left base likely reflects atelectasis. KUB X-Ray 03/15/23 05:35 IMPRESSION: Moderate stool in the colon; query constipation. Abdomen/Pelvis CT 03/15/23 07:05 IMPRESSION: 1. There is asymmetric soft tissue thickening of the posterior left kidney raising concern for mass. This is poorly assessed on the provided noncontrast images. Recommend MRI of the abdomen renal mass protocol with and without contrast to better characterize. 2. Moderate stool in the ascending, transverse and descending colon. 3. Mild periportal/retroperitoneal lymphadenopathy. COMMENTS: 1. Consistent with the [employer]'s Incidental Findings Committee white paper (J Am Janet Radiol 2017): For any incidental adrenal lesion greater than or equal to 1 cm but less than or equal to 4 cm classified in this report as benign, likely benign, or containing fat (including classification as an adenoma or myelolipoma), no follow-up imaging is recommended per consensus recommendations based on imaging criteria. Further lab evaluation could be pursued if warranted based on clinical findings. 2. Consistent with the [employer]'s Incidental Findings Committee white paper (J Am Janet Radiol 2018): Any incidental renal lesion less than 1 cm or classified as too small to characterize, or any incidental cystic renal lesion characterized as simple-appearing, is likely benign. No follow-up imaging is recommended for these lesions per consensus recommendations based on imaging criteria. Laboratory Results WBC 6.1 10^3/uL (4.0-10.0) 03/15/23 05:39 RBC 4.82 10^6/uL (4.1-5.3) 03/15/23 05:39 Hgb 14.3 g/dL (11.7-16.6) 03/15/23 05:39 Hct 43.4 % (42.0-52.0) 03/15/23 05:39 MCV 90.0 fl (80-94) 03/15/23 05:39 MCH 29.7 pg (28.0-34.0) 03/15/23 05:39 MCHC 32.9 g/dL (30.0-36.0) 03/15/23 05:39 RDW 12.2 % (12.1-15.1) 03/15/23 05:39 Plt Count 208 10^3/cmm (130-400) 03/15/23 05:39 MPV 9.9 fL (7.4-10.4) 03/15/23 05:39 Neut % (Auto) 72.8 % 03/15/23 05:39 Lymph % (Auto) 17.4 % 03/15/23 05:39 Mcnairy % (Auto) 8.1 % 03/15/23 05:39 Eos % (Auto) 0.7 % 03/15/23 05:39 Baso % (Auto) 0.5 % 03/15/23 05:39 Neut # (Auto) 4.41 10^3/uL (1.8-7.7) 03/15/23 05:39 Lymph # (Auto) 1.1 10^3/uL (0.8-4.8) 03/15/23 05:39 Mcnairy # (Auto) 0.5 10^3/uL (0.2-0.9) 03/15/23 05:39 Eos # (Auto) 0.0 10^3/uL (0.0-0.8) 03/15/23 05:39 Baso # (Auto) 0.0 10^3/uL (0.0-0.1) 03/15/23 05:39 Nucleated RBC % (auto) 0 % 03/15/23 05:39 Nucleated RBCs # 0.0 /100WBC 03/15/23 05:39 Sodium 137 mmol/L (136-145) 03/15/23 05:39 Potassium 3.8 mmol/L (3.5-5.1) 03/15/23 05:39 Chloride 102 mmol/L (98-107) 03/15/23 05:39 Carbon Dioxide 27 mmol/L (22-29) 03/15/23 05:39 Anion Gap 11.8 (5-19) 03/15/23 05:39 BUN 17 mg/dL (6-20) 03/15/23 05:39 Creatinine 1.1 mg/dL (0.7-1.2) 03/15/23 05:39 GFR Calculation 73.1 mL/min (90-130) L 03/15/23 05:39 Glucose 90 mg/dL (65-115) 03/15/23 05:39 Calculated Osmolality 285 mOsm/kg (285-295) 03/15/23 05:39 Calcium 8.9 mg/dL (8.5-10.5) 03/15/23 05:39 Total Bilirubin 0.4 mg/dL (0.15-1.2) 03/15/23 05:39 AST 25 U/L (0-40) 03/15/23 05:39 ALT 25 U/L (0-41) 03/15/23 05:39 Alkaline Phosphatase 114 U/L (40-130) 03/15/23 05:39 Creatine Kinase 110 U/L (39-308) 03/15/23 05:39 Total Protein 6.6 g/dL (6.6-8.7) 03/15/23 05:39 Albumin 3.9 g/dL (3.5-5.2) 03/15/23 05:39 Globulin 2.7 g/dL (1.3-4.6) 03/15/23 05:39 Lipase 126 U/L (13-60) H 03/15/23 05:39 Urine Color Yellow (Yellow) 03/15/23 07:25 Urine Appearance Clear (CLEAR) 03/15/23 07:25 Urine pH 6 (5-7) 03/15/23 07:25 Ur Specific Carter 1.020 (1.005-1.030) 03/15/23 07:25 Urine Protein Neg (Negative) 03/15/23 07:25 Urine Glucose (UA) Norm (Normal) 03/15/23 07:25 Urine Ketones Negative (Negative) 03/15/23 07:25 Urine Blood Neg (Negative) 03/15/23 07:25 Urine Nitrate Negative (Negative) 03/15/23 07:25 Urine Bilirubin Neg (Negative) 03/15/23 07:25 Urine Urobilinogen Norm mg/dL (Negative) 03/15/23 07:25 Ur Leukocyte Esterase Trace (Negative) H 03/15/23 07:25 Urine RBC 0-4 /hpf (0-2) H 03/15/23 07:25 Urine WBC 5-10 /hpf (0-5) H 03/15/23 07:25 Ur Squamous Epith Cells Rare /hpf (0-5) 03/15/23 07:25 Calcium Oxalate Crystal 0-4 /hpf H 03/15/23 07:25 Amorphous Sediment Not Reportable 03/15/23 07:25 Urine Bacteria Trace /hpf (NONE) 03/15/23 07:25 Hyaline Casts 0-4 /lpf H 03/15/23 07:25 Urine Mucus 1+ /hpf 03/15/23 07:25 SARS-CoV-2 Ag (Rapid) negative (Negative) 03/15/23 05:52 Discharge Plan Discharge Patient Disposition: Home Clinical Impression: HTN (hypertension), Abdominal pain, Constipation Condition: Stable Prescriptions: New ondansetron HCl 4 mg tablet 4 mg PO Q6H PRN (Reason: nausea and vomiting) Qty: 10 0RF Toprol XL 50 mg tablet extended release 24 hr 50 mg PO DAILY Qty: 30 0RF No Action metoprolol succinate 50 mg tablet extended release 24 hr 50 mg PO DAILY aspirin 325 mg Tablet 325 mg PO Q6H PRN (Reason: Headache) Hold Instructions: Continue holding until reevaluated with urology. Discharge Orders: Discharge ED (Routine); Ordered 03/15/23 Ordered By: Estevan Melchor Discharge Diet: Usual diet Patient Instructions: Abdominal Pain (ED), Opioid Safety, Pain Management Activity Restrictions/Additional Instructions: You were seen today for abdominal discomfort CT showed constipation. There is also questionable Sign Out Sign Out Data: Patient Sign Out occurred on 03/15/23 at 06:31. Patient's care was discussed, and care was transferred from to Estevan Melchor DO. Coding Level of Care Code ED Packer Denture for Uzair Briggs
--- NOTE | 2023-03-15 05:35 | XRR_ITS ---
PROCEDURE INFORMATION: Exam: XR Abdomen Exam date and time: 03/15/2023 5:49 AM Age: 42 years old Clinical indication: Constipation TECHNIQUE: Imaging protocol: Radiologic exam of the abdomen. Views: Frontal supine view of the abdomen. 1 View. COMPARISON: CT abdomen pelvis w con* [id number] 04/18/2021 11:22 PM FINDINGS: Gastrointestinal tract: Moderate stool in the colon; query constipation. Nonobstructive bowel gas pattern. Intraperitoneal space: No gross free air. Bones/joints: No gross acute fracture. XR/XR KUB [id number] IMPRESSION: Moderate stool in the colon; query constipation.
--- NOTE | 2023-03-15 05:35 | XRR_ITS ---
PROCEDURE INFORMATION: Exam: XR Chest Exam date and time: 03/15/2023 5:46 AM Age: 42 years old Clinical indication: Hypertension TECHNIQUE: Imaging protocol: Radiologic exam of the chest. Views: 1 view. COMPARISON: CR XR chest 1V portable [id number] 04/18/2021 10:49 PM FINDINGS: Lungs: Streaky opacity at the lateral left base likely reflects atelectasis. Pleural spaces: No pleural effusion. No pneumothorax. Heart/Mediastinum: The cardiac silhouette is unchanged. No gross evidence of pneumomediastinum. Bones/joints: No gross fracture. XR/XR chest 1V portable [id number] IMPRESSION: Streaky opacity at the lateral left base likely reflects atelectasis.
[2023-03-15 05:47] LABS: Basophils % 0.5 %; Eosinophils % 0.7 %; Hematocrit 43.4 % (42.0-52.0); Hemoglobin 14.3 g/dL (11.7-16.6); Lymphocytes # 1.1 10^3/uL (0.8-4.8); Lymphocytes % 17.4 %; Mean Corpuscular HGB Conc 32.9 g/dL (30.0-36.0); Mean Corpuscular Hemoglobin 29.7 pg (28.0-34.0); Mean Platelet Volume 9.9 fL (7.4-10.4); Monocytes # 0.5 10^3/uL (0.2-0.9); Monocytes % 8.1 %; Neutrophils # 4.41 10^3/uL (1.8-7.7); Neutrophils % 72.8 %; Nucleated Red Blood Cells % 0 %; Platelet Count 208 10^3/cmm (130-400); Red Blood Count 4.82 10^6/uL (4.1-5.3); Red Cell Distribution Width 12.2 % (12.1-15.1); White Blood Count 6.1 10^3/uL (4.0-10.0)
[2023-03-15] MEDS: sodium chloride 0.9% 1,000 ML 999 ML IV (05:53)
[2023-03-15] MEDS: labetalol 5 mg/mL SDV 20mL 10 MG IVP ×2 (05:53→07:11)
[2023-03-15 06:18] LABS: Alanine Aminotransferase 25 U/L (0-41); Albumin Level 3.9 g/dL (3.5-5.2); Alkaline Phosphatase 114 U/L (40-130); Anion Gap 11.8 (5-19); Aspartate Amino Transferase 25 U/L (0-40); Blood Urea Nitrogen 17 mg/dL (6-20); Calcium 8.9 mg/dL (8.5-10.5); Carbon Dioxide 27 mmol/L (22-29); Chloride 102 mmol/L (98-107); Creatine Phosphokinase 110 U/L (39-308); Creatinine Clr Calc Pharmacy 91.9526; Globulin 2.7 g/dL (1.3-4.6); Glomerular Filtration Rate 73.1 mL/min (90-130); Glucose 90 mg/dL (65-115); Lipase 126 U/L (13-60); Osmolality Calculated 285 mOsm/kg (285-295); Potassium 3.8 mmol/L (3.5-5.1); Sodium 137 mmol/L (136-145); Total Bilirubin 0.4 mg/dL (0.15-1.2); Total Protein 6.6 g/dL (6.6-8.7)
[2023-03-15 06:18] LABS: SARS Covid-2 Antigen negative (Negative)
--- NOTE | 2023-03-15 06:24 | PC.NURSE ---
This nurse rounded on patient to ask the patient if he could produce urine to be tested. Patient stated I peed before I got here, and I can't pee now. Nurse asked patient if he could at least try to void and produce a specimen, and stated that if he could not produce a specimen the doctor may order a straight cath. Patient stated, No, you will not be straight cathing me. Patient refusing to be straight cathed at this time.
--- NOTE | 2023-03-15 07:05 | CTR_ITS ---
PROCEDURE INFORMATION: Exam: CT Abdomen And Pelvis Without Contrast Exam date and time: 03/15/2023 7:31 AM Age: 42 years old Clinical indication: Blunt trauma with pain. Epigastric abdominal pain. TECHNIQUE: Imaging protocol: Computed tomography of the abdomen and pelvis without contrast. Radiation optimization: All CT scans at this facility use at least one of these dose optimization techniques: automated exposure control; mA and/or kV adjustment per patient size (includes targeted exams where dose is matched to clinical indication); or iterative reconstruction. REPORTING DATA: Count of CT and Cardiac NM exams in prior 12 months: This patient has received 0 known CTs and 0 known cardiac nuclear medicine studies in the 12 months prior to the current study. COMPARISON: CT abdomen pelvis w con* [id number] 04/18/2021 11:22 PM RADIATION DOSE METRICS: Total DLP (mGy-cm): 559.43 FINDINGS: Lungs: Minimal atelectasis at the left base. No pericardial effusion. No hiatal hernia. Liver: The liver is unremarkable. Gallbladder and bile ducts: The gallbladder is unremarkable. Pancreas: The pancreas is unremarkable. Spleen: The spleen is unremarkable. Adrenal glands: A benign adrenal adenoma on the left measures 1.1 cm. Kidneys and ureters: A simple right renal cyst measures 1.9 cm. There is asymmetric soft tissue thickening of the posterior left kidney raising concern for mass. This is poorly assessed on the provided noncontrast images. No hydronephrosis. Stomach and bowel: The stomach and small bowel are unremarkable. Moderate stool in the ascending, transverse and descending colon. Appendix: The appendix is unremarkable. Intraperitoneal space: No free intraperitoneal air is seen. Vasculature: No abdominal aortic aneurysm. Lymph nodes: A periportal lymph node measures 1.4 x 1.8 cm. A left periaortic lymph node measures 1.1 x 1.3 cm. Urinary bladder: The bladder is largely decompressed. Reproductive: The prostate measures 3.7 x 4.5 cm. Bones/joints: No acute fracture is seen. Soft tissues: Small fat containing right inguinal hernia. Small fat containing umbilical hernia. CT/CT abdomen pelvis wo con [id number] IMPRESSION: 1. There is asymmetric soft tissue thickening of the posterior left kidney raising concern for mass. This is poorly assessed on the provided noncontrast images. Recommend MRI of the abdomen renal mass protocol with and without contrast to better characterize. 2. Moderate stool in the ascending, transverse and descending colon. 3. Mild periportal/retroperitoneal lymphadenopathy. COMMENTS: 1. Consistent with the [employer]'s Incidental Findings Committee white paper (J Am Janet Radiol 2017): For any incidental adrenal lesion greater than or equal to 1 cm but less than or equal to 4 cm classified in this report as benign, likely benign, or containing fat (including classification as an adenoma or myelolipoma), no follow-up imaging is recommended per consensus recommendations based on imaging criteria. Further lab evaluation could be pursued if warranted based on clinical findings. 2. Consistent with the [employer]'s Incidental Findings Committee white paper (J Am Janet Radiol 2018): Any incidental renal lesion less than 1 cm or classified as too small to characterize, or any incidental cystic renal lesion characterized as simple-appearing, is likely benign. No follow-up imaging is recommended for these lesions per consensus recommendations based on imaging criteria.
[2023-03-15] MEDS: hyDRALAzine 20 mg/mL INJ 1 mL 10 MG IVP (07:10)
[2023-03-15] MEDS: amlodipine 5 mg Tablet PO (07:11)
[2023-03-15 07:50] LABS: Add Urine Microscopic? YES; Bacteria Urine TRACE /hpf; Bilirubin Urine Neg (Negative); Blood Urine Neg (Negative); Glucose Urine UA Norm (Normal); Ketones Urine Negative (Negative); Leukocyte Esterase Urine Trace (Negative); Mucus Urine 1+ /hpf; Nitrate Urine Negative (Negative); Protein Urine Neg (Negative); RBC Urine 0-4 /hpf (0-2); Squamous Epithelial Cell Urine RARE /hpf (0-5); Urine Appearance Clear (CLEAR); Urine Color Yellow (Yellow); Urobilinogen Urine Norm (Negative); pH Urine 6 (5-7)
[2023-03-15 07:51] LABS: Add Urine Culture? No; Calcium Oxalate Crystals Urine 0-4 /hpf; Hyaline Casts Urine 0-4 /lpf
--- NOTE | 2023-03-15 08:07 | PC.PHAR ---
pt states he takes care of his own medications-aubrey last filled metoprolol er nov 2021 30d/s for 50mg bid pt states he just ran out 4 days ago and takes 1 tab daily-notes are made in the pharmacy comment
--- NOTE | 2023-03-23 07:46 | DCPLANNER ---
TCM called patient due to no primary care physician - no answer at this time.
== END 2023-03-15 09:01 | disposition home or self-care (01) ==
PROVIDERS: Emergency Medicine; Emergency Provider Family Medicine
DX: K59.00 Constipation, unspecified (principal); I10 Essential (primary) hypertension; Z20.822 Contact with and (suspected) exposure to COVID-19; F17.210 Nicotine dependence, cigarettes, uncomplicated
CPT/HCPCS: 71045; 74018; 74176; 80053; 81001; 82550; 83690; 85025; 87426; 96361; 96374; 96375; 96376; 99285; J0360; J3490; J7030

== ENCOUNTER 2023-07-07 03:13 | Emergency (ER) | payer SELFPAY ==
[2023-07-07 03:22] VITALS: BP 163/119; PULSE 89; RESP 18; TEMP 36.6; O2SAT 98; BMI 26.6
--- NOTE | 2023-07-07 03:24 | ED_ITS ---
[facility] - General Adult General: Stated complaint: Rectal problems Time Seen by Provider: 07/07/23 03:14 Source: patient Mode of arrival: ambulatory Limitations: no limitations History of Present Illness: 43-year-old male states he had some rectal pain and feels like there is a balloon hanging out of his rectum. He denies any history of hemorrhoids. Denies any blood in his stool he states he does have pain when he defecates. Associated symptoms: Deny chest pain, dyspnea, nausea, rash or vomiting Review of Systems Const: Denies: fever(s) ENMT: Denies: throat pain or dental pain Card: Denies: chest pain Resp: Denies: dyspnea GI: Reports: rectal pain; Denies: abdominal pain, nausea, vomiting or diarrhea Musc: Denies: neck pain or back pain Skin/Breast: Denies: rash PFSH ED PFSH: Medical History Cellulitis Hypertension Surgical History History of vasectomy Family History Denies family history of CAD (coronary artery disease) Bleeding disorder Social History Smoking and tobacco status: current every day smoker Alcohol intake: never Substance/Drug Use: never Housing: House Current occupational status: unemployed Physical Exam Const: COMMON NORMALS: no acute distress and patient oriented x3 Eye: COMMON NORMALS: conjunctivae normal CONJUNCTIVA: Yes conjunctivae normal Neck/C-Spine: COMMON NORMALS: supple Chest: COMMONS NORMALS: normal inspection of the chest Resp: COMMON NORMALS: normal respiratory effort GI: OTHER: Hemorrhoid noted on rectal exam no blood Extremity: COMMON NORMALS: normal to inspection Neuro: COMMON NORMALS: patient oriented x3 Psych: COMMON NORMALS: mental status grossly normal Skin: COMMON NORMALS: no rashes or lesions noted GENERAL SKIN EXAM: no rashes or lesions noted [facility] - General Adult Medical Decision Making Patient presents here with hemorrhoid did place patient on Proctofoam and Colace patient is follow-up PCP and return if worsening Medical Records I reviewed the patient's medical records. Lab Data I reviewed the patient's lab results. Discharge Plan Discharge Patient Disposition: Home Clinical Impression: Hemorrhoid Condition: Stable Prescriptions: New pramoxine [Proctofoam] 1 % foam 1 applic RI BID Qty: 15 0RF docusate sodium [Colace] 100 mg capsule 100 mg PO BID Qty: 30 0RF No Action metoprolol succinate [Toprol XL] 50 mg tablet extended release 24 hr 50 mg PO DAILY Qty: 30 1RF aspirin 325 mg Tablet 325 mg PO Q6H PRN (Reason: Headache) Hold Instructions: Continue holding until reevaluated with urology. 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
== END 2023-07-07 03:36 | disposition home or self-care (01) ==
PROVIDERS: Emergency Provider Emergency Medicine
DX: K64.9 Unspecified hemorrhoids (principal); I10 Essential (primary) hypertension; F17.210 Nicotine dependence, cigarettes, uncomplicated
CPT/HCPCS: 99283

== ENCOUNTER → 2024-07-17 10:10 | Outpatient (BNVA) | payer OTHER, SELFPAY | DX: I10 Essential (primary) hypertension (principal); R07.9 Chest pain, unspecified | CPT/HCPCS: 80053; 80061; 85025; 93005 ==

== ENCOUNTER 2024-12-14 20:35 | Emergency (ER) | payer OTHER, SELFPAY ==
[2024-12-14 20:51] VITALS: BP 154/98; PULSE 94; RESP 17; TEMP 38; O2SAT 100; BMI 26.6
--- NOTE | 2024-12-14 22:07 | XRR_ITS ---
PROCEDURE INFORMATION: Exam: XR Chest Exam date and time: 12/14/2024 10:18 PM Age: 44 years old Clinical indication: Pain; Shortness of breath; Chest pressure; C/O chest discomfort with SOB. TECHNIQUE: Imaging protocol: Radiologic exam of the chest. Views: 1 view. COMPARISON: CR XR chest 1V portable [id number] 03/15/2023 5:46 AM FINDINGS: Lungs: Unremarkable. No consolidation. Pleural spaces: Unremarkable. No pleural effusion. No pneumothorax. Heart/Mediastinum: Unremarkable. No cardiomegaly. Bones/joints: Unremarkable. XR/XR chest 1V portable [id number] IMPRESSION: No acute findings.
[2024-12-14 23:00] LABS: Basophils % 0.6 %; Eosinophils % 0.3 %; Hematocrit 42.1 % (37-53); Mean Corpuscular Hemoglobin 29.7 pg (27-33); Mean Corpuscular Volume 87.3 fl (82-101); Monocytes # 0.7 10^3/uL (0.2-0.9); Monocytes % 10.3 %; Neutrophils # 5.28 10^3/uL (1.8-7.7); Neutrophils % 74.5 %; Nucleated Red Blood Cells % 0 %; Platelet Count 213 10^3/cmm (157-399); Red Blood Count 4.82 10^6/uL (3.85-5.65); Red Cell Distribution Width 12.4 % (12.1-15.1); White Blood Count 7.08 10^3/uL (3.29-11.43)
[2024-12-14 23:23] LABS: Alanine Aminotransferase 21 U/L (0-41); Albumin Level 4.1 g/dL (3.5-5.2); Alkaline Phosphatase 97 U/L (40-130); Anion Gap 13.8 (5-19); Aspartate Amino Transferase 21 U/L (0-40); Blood Urea Nitrogen 17 mg/dL (6-20); Calcium 9.4 mg/dL (8.5-10.5); Carbon Dioxide 29 mmol/L (22-29); Chloride 96 mmol/L (98-107); Creatinine Clr Calc Pharmacy 90.0566; Glomerular Filtration Rate 72.4 mL/min (90-130); Glucose 104 mg/dL (65-115); Osmolality Calculated 282 mOsm/kg (285-295); Potassium 3.8 mmol/L (3.5-5.1); Sodium 135 mmol/L (136-145); Total Bilirubin 0.2 mg/dL (0.15-1.2); Total Protein 7.1 g/dL (6.6-8.7)
[2024-12-15 00:03] LABS: Covid PCR NEGATIVE (Negative); Influenza A POSITIVE (Negative); Influenza B NEGATIVE (Negative); Respiratory Syncytial Virus Ce NEGATIVE (Negative)
--- NOTE | 2024-12-15 00:24 | W.ED.URI ---
HPI - URI/Sore Throat General: Chief Complaint: Upper Respiratory Infection Stated Complaint: Fever\Chest Hurts Time Seen by Provider: 12/14/24 23:09 Source: patient Mode of arrival: ambulatory Limitations: no limitations History of Present Illness: Patient is a 44-year-old male that presents emergency department with fever, cough and chest discomfort with the cough. He states he was exposed to influenza at work. He states his symptoms began yesterday and continued today. He denies any nausea or vomiting. He presents to the emergency department for further evaluation and treatment. MD elicited complaint: fever, cough and nasal congestion Associated symptoms: Reports abdominal pain, chills and fever(s); Deny ear or mastoid pain, nausea or vomiting Related Data Home Medications ?Medication ?Instructions ?Recorded ?Confirmed aspirin 325 mg tablet 325 mg PO Q6H PRN Headache 11/17/20 07/17/24 Held on 11/20/20. Instructions: Continue holding until reevaluated with urology. Previous Rx's ?Medication ?Instructions ?Recorded amlodipine 10 mg tablet See Rx Instructions .Route 07/17/24 .COMPLEX #30 tabs ciprofloxacin HCl 0.3 % eye drops See Rx Instructions ophthalmic 07/17/24 (eye) .COMPLEX #2.5 mL metoprolol succinate 50 mg See Rx Instructions .Route 07/17/24 tablet,extended release 24 hr .COMPLEX #60 tabs chlorthalidone 25 mg tablet 25 mg PO DAILY #30 tabs 11/20/24 benzonatate 100 mg capsule 100 - 200 mg (1 - 2 x 100 mg) PO 12/15/24 Q8H PRN cough #14 caps Allergies Allergy/AdvReac Type Severity Reaction Status Date / Time Penicillins Allergy Intermediate ADR-Headach Verified 07/17/24 10:20 e Review of Systems Const: Reports: fever(s), chills and body aches Eyes: Denies: eye discharge or eye redness ENMT: Denies: ear or mastoid pain or change in hearing Card: Denies: edema Resp: Reports: productive cough; Denies: wheezing or hemoptysis GI: Reports: abdominal pain; Denies: nausea or vomiting : Denies: difficulty urinating or dysuria Musc: Reports: back pain Skin/Breast: Denies: rash, pruritus or erythema Neuro: Denies: sensory changes, difficulty walking or vertigo Psych: Denies: anxiety or depression Endo: Denies: polyuria or polydipsia Roby/Lymph: Denies: petechiae All/Imm: Denies: urticaria or throat swelling PFSH ED PFSH: Medical History Right conjunctivitis Chest pain on exertion Decreased GFR Severe diastolic hypertension Retroperitoneal hematoma 11/2020 Kidney laceration, left 11/2020 Etiology unclear. Will need reimaging after resolution of retroperitoneal hematoma for reassessment of renal anatomy. Surgical History History of vasectomy Family History Mother Hypertension Father Diabetes unsure of type Denies family history of CAD (coronary artery disease) Bleeding disorder Social History Smoking and tobacco/nicotine status: current every day tobacco/nicotine user Alcohol intake: never Substance/Drug Use: never Housing: House Current occupational status: unemployed Physical Exam Const: COMMON NORMALS: no acute distress and patient oriented x3 EXAM LIMITATIONS: no altered mental status ORIENTATION/CONSCIOUSNESS: Yes awake; not confused HENMT: COMMON NORMALS: normocephalic, atraumatic, EAC's normal, TM's normal bilaterally and Normal external nose present HEAD & SCALP: normocephalic and atraumatic NOSE: Normal external nose present EXTERNAL AUDITORY CANAL: EAC's normal TYMPANIC MEMBRANE: TM's normal bilaterally MOUTH: Normal oral and palatal mucosa present THROAT: posterior oropharynx normal Eye: COMMON NORMALS: conjunctivae normal CONJUNCTIVA: Yes conjunctivae normal Neck/C-Spine: COMMON NORMALS: full ROM, supple and no meningeal signs CERVICAL SPINE: Yes cervical ROM normal Cardio: COMMON NORMALS: regular rate and regular rhythm RATE: regular rate RHYTHM: regular rhythm : BLADDER/KIDNEY EXAM: No CVA tenderness Back/Pelvis: GENERAL BACK: No CVA tenderness Extremity: COMMON NORMALS: full ROM and no pedal edema Neuro: COMMON NORMALS: patient oriented x3 MENINGEAL SIGNS: Yes no meningeal signs Psych: COMMON NORMALS: mental status grossly normal Skin: COMMON NORMALS: no rashes or lesions noted and no petechiae GENERAL SKIN EXAM: no rashes or lesions noted Course Vital Signs: Vital signs: Vital Signs Temperature 100.4 F H 12/14/24 20:51 Pulse Rate 94 12/14/24 20:51 Respiratory Rate 17 12/14/24 20:51 Blood Pressure 154/98 12/14/24 20:51 Pulse Oximetry 100 12/14/24 20:51 Oxygen Delivery Me thod Room Air 12/14/24 20:51 MDM - URI/Sore Throat Medical Decision Making Patient was advised of the exam, lab and imaging findings. Thankfully there is no pneumonia is noted on the x-ray. Patient's labs were pretty much unremarkable except he did test positive for influenza A. I recommended that he rest and increase fluids. He was also advised to use [id number] Tylenol or ibuprofen as directed for body aches and fever. Risk and benefit of Tamiflu were explained to the patient but he wishes to avoid this at this time. I recommended that he follow-up with the primary care provider for further evaluation and treatment, no work until his fever free for 24 hours and return to the emergency department with any worsening symptoms. The patient expressed understanding. Differential Diagnosis Likely upper respiratory infection and influenza Lab Data I reviewed the patient's lab results. 12/14/24 22:53 12/14/24 22:53 Radiology Impressions Chest X-Ray 12/14/24 22:07 IMPRESSION: No acute findings. Laboratory Results WBC 7.08 10^3/uL (3.29-11.43) 12/14/24 22:53 RBC 4.82 10^6/uL (3.85-5.65) 12/14/24 22:53 Hgb 14.30 g/dL (11.27-16.99) 12/14/24 22:53 Hct 42.1 % (37-53) 12/14/24 22:53 MCV 87.3 fl (82-101) 12/14/24 22:53 MCH 29.7 pg (27-33) 12/14/24 22:53 MCHC 34.0 g/dL (30-55) 12/14/24 22:53 RDW 12.4 % (12.1-15.1) 12/14/24 22:53 Plt Count 213 10^3/cmm (157-399) 12/14/24 22:53 MPV 10.0 fL (7.4-10.4) 12/14/24 22:53 Neut % (Auto) 74.5 % 12/14/24 22:53 Lymph % (Auto) 14.0 % 12/14/24 22:53 [place] % (Auto) 10.3 % 12/14/24 22:53 Eos % (Auto) 0.3 % 12/14/24 22:53 Baso % (Auto) 0.6 % 12/14/24 22:53 Neut # (Auto) 5.28 10^3/uL (1.8-7.7) 12/14/24 22:53 Lymph # (Auto) 1.0 10^3/uL (0.8-4.8) 12/14/24 22:53 [place] # (Auto) 0.7 10^3/uL (0.2-0.9) 12/14/24 22:53 Eos # (Auto) 0.0 10^3/uL (0.0-0.8) 12/14/24 22:53 Baso # (Auto) 0.0 10^3/uL (0.0-0.1) 12/14/24 22:53 Nucleated RBC % (auto) 0 % 12/14/24:53 Nucleated RBCs # 0.0 /100WBC 12/14/24 22:53 Sodium 135 mmol/L (136-145) L 12/14/24 22:53 Potassium 3.8 mmol/L (3.5-5.1) 12/14/24 22:53 Chloride 96 mmol/L (98-107) L 12/14/24 22:53 Carbon Dioxide 29 mmol/L (22-29) 12/14/24 22:53 Anion Gap 13.8 (5-19) 12/14/24 22:53 BUN 17 mg/dL (6-20) 12/14/24 22:53 Creatinine 1.1 mg/dL (0.7-1.2) 12/14/24 22:53 GFR Calculation 72.4 mL/min (90-130) L 12/14/24 22:53 Glucose 104 mg/dL (65-115) 12/14/24 22:53 Calculated Osmolality 282 mOsm/kg (285-295) L 12/14/24 22:53 Calcium 9.4 mg/dL (8.5-10.5) 12/14/24 22:53 Total Bilirubin 0.2 mg/dL (0.15-1.2) 12/14/24 22:53 AST 21 U/L (0-40) 12/14/24 22:53 ALT 21 U/L (0-41) 12/14/24 22:53 Alkaline Phosphatase 97 U/L (40-130) 12/14/24 22:53 Total Protein 7.1 g/dL (6.6-8.7) 12/14/24 22:53 Albumin 4.1 g/dL (3.5-5.2) 12/14/24 22:53 Globulin 3.0 g/dL (1.3-4.6) 12/14/24 22:53 Coronavirus (PCR) Negative (Negative) 12/14/24 23:00 Influenza A (PCR) Positive (Negative) 12/14/24 23:00 Influenza Type B (PCR) Negative (Negative) 12/14/24 23:00 RSV (PCR) Negative (Negative) 12/14/24 23:00 All radiology interpretation(s) finalized by discharge Critical Care Time Critical Care Time: Critical Care Time: No Discharge Plan Discharge Patient Disposition: Home Clinical Impression: Influenza A Condition: Stable Prescriptions: New benzonatate 100 mg capsule 100 - 200 mg PO Q8H PRN (Reason: cough) Qty: 14 0RF No Action amlodipine 10 mg tablet See Rx Instructions .ROUTE .COMPLEX Qty: 30 2RF Dose Instruction: TAKE 1 TABLET BY MOUTH EVERY DAY FOR HIGH BLOOD PRESSURE Rx Instructions: TAKE 1 TABLET BY MOUTH EVERY DAY FOR HIGH BLOOD PRESSURE metoprolol succinate 50 mg tablet extended release 24 hr See Rx Instructions .ROUTE .COMPLEX Qty: 60 2RF Dose Instruction: TAKE 1 TABLET BY MOUTH TWICE DAILY FOR HIGH BLOOD PRESSURE Rx Instructions: TAKE 1 TABLET BY MOUTH TWICE DAILY FOR HIGH BLOOD PRESSURE ciprofloxacin HCl 0.3 % drops See Rx Instructions ophthalmic (eye) .COMPLEX Qty: 2.5 0RF Rx Instructions: put 1-2 drps in affected eye(s) every 2hr up to 8 times/day x2days; then 4 times/day x5days ophthalmic (eye) chlorthalidone 25 mg tablet 25 mg PO DAILY Qty: 30 0RF aspirin 325 mg Tablet 325 mg PO Q6H PRN (Reason: Headache) Discharge Orders: Discharge ED (Routine); Ordered 12/15/24 Ordered By: Girma Pitt Discharge Diet: Usual diet Patient Instructions: Influenza (ED), Opioid Safety, Pain Management Activity Restrictions/Additional Instructions: [id number] Tylenol as directed for fever and/or bodyaches Rest, increase fluids. Take the prescription strength cough medicine as directed. Your prescription was sent electronically to your preferred pharmacy. Follow-up with a local doctor in 1 week for recheck. No work until . You may return if you are fever free for 24 hours prior to return. Return to the emergency department with any worsening symptoms. 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
== END 2024-12-15 00:41 | disposition home or self-care (01) ==
PROVIDERS: Emergency Medicine; Emergency Provider Physician Assistant
DX: J10.1 Influenza due to other identified influenza virus with other respiratory manifestations (principal); Z11.52 Encounter for screening for COVID-19; Z79.82 Long term (current) use of aspirin; Z72.0 Tobacco use; I10 Essential (primary) hypertension
CPT/HCPCS: 12345; 36415; 71045; 80053; 85025; 87637; 99284

== ENCOUNTER 2024-12-17 22:21 | Emergency (ER) | payer OTHER, SELFPAY ==
[2024-12-17 22:30] VITALS: BP 142/97; PULSE 116; RESP 19; TEMP 37.4; O2SAT 99; BMI 26.6
--- NOTE | 2024-12-17 23:19 | XRR_ITS ---
PROCEDURE INFORMATION: Exam: XR Chest Exam date and time: 12/17/2024 11:34 PM Age: 44 years old Clinical indication: Cough and fever; Additional info: Shortness of breath TECHNIQUE: Imaging protocol: Radiologic exam of the chest. Views: 1 view. COMPARISON: CR (CHEST, ) 12/14/2024 10:18 PM FINDINGS: Lungs: No CHF/pulmonary edema. Minimal left lower lung opacities are likely atelectasis or parenchymal scarring. Subtle pneumonitis not excluded. Please correlate clinically The lungs otherwise appear essentially clear. Pleural spaces: No visible pneumothorax. No pleural fluid. Heart/Mediastinum: Heart size is normal. Bones/joints: No significant acute finding. XR/XR chest 1V portable [id number] IMPRESSION: 1. Minimal left lower lung opacities, see above discussion. 2. Other details discussed above.
--- NOTE | 2024-12-17 23:45 | W.ED.URI ---
HPI - URI/Sore Throat General: Chief Complaint: Upper Respiratory Infection Stated Complaint: Fever,N/V Time Seen by Provider: 12/17/24 23:33 History of Present Illness: 44-year-old male presents emergency room with flu symptoms. He was diagnosed with the flu couple days ago. He has developed worsening cough. He is had some nausea and vomiting. He is a bit tachycardic on presentation. He is complaining of severe body aches. Related Data Home Medications ?Medication ?Instructions ?Recorded ?Confirmed aspirin 325 mg tablet 325 mg PO Q6H PRN Headache 11/17/20 07/17/24 Held on 11/20/20. Instructions: Continue holding until reevaluated with urology. Previous Rx's ?Medication ?Instructions ?Recorded amlodipine 10 mg tablet See Rx Instructions .Route 07/17/24 .COMPLEX #30 tabs ciprofloxacin HCl 0.3 % eye drops See Rx Instructions ophthalmic 07/17/24 (eye) .COMPLEX #2.5 mL chlorthalidone 25 mg tablet 25 mg PO DAILY #30 tabs 11/20/24 benzonatate 100 mg capsule 100 - 200 mg (1 - 2 x 100 mg) PO 12/15/24 Q8H PRN cough #14 caps metoprolol succinate 50 mg See Rx Instructions .Route 12/15/24 tablet,extended release 24 hr .COMPLEX #60 tabs dexamethasone 6 mg tablet 6 mg PO DAILY 5 days #5 tabs 12/17/24 diclofenac sodium 50 mg 50 mg PO BID PRN pain #14 tabs 12/17/24 tablet,delayed release ondansetron 8 mg disintegrating 8 mg PO Q6H #14 tabs 12/17/24 tablet Allergies Allergy/AdvReac Type Severity Reaction Status Date / Time Penicillins Allergy Intermediate ADR-Headach Verified 12/17/24 22:34 e Review of Systems Narrative: Constitutional symptoms: Negative except as documented in HPI. Skin symptoms: Negative except as documented in HPI. Eye symptoms: Negative except as documented in HPI. ENMT symptoms: Negative except as documented in HPI. Respiratory symptoms: Negative except as documented in HPI. Cardiovascular symptoms: Negative except as documented in HPI. Gastrointestinal symptoms: Negative except as documented in HPI. Genitourinary symptoms: Negative except as documented in HPI. Musculoskeletal symptoms: Negative except as documented in HPI. Neurologic symptoms: Negative except as documented in HPI. Psychiatric symptoms: Negative except as documented in HPI. Endocrine symptoms: Negative except as documented in HPI. PFS ED PFSH: Medical History Right conjunctivitis Chest pain on exertion Decreased GFR Severe diastolic hypertension Retroperitoneal hematoma 11/2020 Kidney laceration, left 11/2020 Etiology unclear. Will need reimaging after resolution of retroperitoneal hematoma for reassessment of renal anatomy. Surgical History History of vasectomy Family History Mother Hypertension Father Diabetes unsure of type Denies family history of CAD (coronary artery disease) Bleeding disorder Social History Smoking and tobacco/nicotine status: current every day tobacco/nicotine user Alcohol intake: never Substance/Drug Use: never Housing: House Current occupational status: unemployed Physical Exam Narrative: EXAM NARRATIVE: General: Alert, no acute distress. Skin: Warm, dry. Head: Normocephalic, atraumatic. Neck: Supple, trachea midline. Eye: Extraocular movements are intact. Ears, nose, mouth and throat: Dry oral mucosa Cardiovascular: Regular, tachycardic, normal peripheral perfusion. Respiratory: Lungs are clear to auscultation, respirations are non-labored, breath sounds are equal, Symmetrical chest wall expansion. Gastrointestinal: Soft, Nontender, Non distended Musculoskeletal: Normal ROM, no deformity. Neurological: Alert and oriented, No focal neurological deficit observed. Psychiatric: Cooperative, appropriate mood & affect. Course Vital Signs: Vital signs: Vital Signs Temperature 99.4 F 12/17/24 22:30 Pulse Rate 116 H 12/17/24 22:30 Respiratory Rate 19 H 12/17/24 22:30 Blood Pressure 142/97 12/17/24 22:30 Pulse Oximetry 99 12/17/24 22:30 Oxygen Delivery Me thod Room Air 12/17/24 22:30 MDM - URI/Sore Throat Medical Decision Making Lab Review: Laboratory results were reviewed and interpreted by myself the emergency room physician. Lab work is unremarkable. No leukocytosis. No anemia. No renal failure. Chest x-ray: No acute process. No infiltrate. No pneumothorax. This was reviewed and interpreted by myself the emergency room physician. I also reviewed the radiology report. I reviewed the patient's medical record. Reexamination: Patient remained stable. No increased work of breathing. No altered mental status. No focal motor deficits. Assessment and plan: Dehydration Influenza A ? IV fluids, IV Zofran and IV Toradol in the emergency room - Discharged home - Discussed plan with patient. Answered any questions. - Evaluation and treatment of this problem were appropriate in the emergency setting. Lab Data 12/17/24 23:35 12/17/24 23:35 Laboratory Results WBC 7.62 10^3/uL (3.29-11.43) 12/17/24 23:35 RBC 5.63 10^6/uL (3.85-5.65) 12/17/24 23:35 Hgb 16.60 g/dL (11.27-16.99) 12/17/24 23:35 Hct 49.2 % (37-53) 12/17/24 23:35 MCV 87.4 fl (82-101) 12/17/24 23:35 MCH 29.5 pg (27-33) 12/17/24 23:35 MCHC 33.7 g/dL (30-55) 12/17/24 23:35 RDW 11.9 % (12.1-15.1) L 12/17/24 23:35 Plt Count 231 10^3/cmm (157-399) 12/17/24 23:35 MPV 10.3 fL (7.4-10.4) 12/17/24 23:35 Neut % (Auto) 66.1 % 12/17/24 23:35 Lymph % (Auto) 25.3 % 12/17/24 23:35 [place] % (Auto) 7.7 % 12/17/24 23:35 Eos % (Auto) 0.0 % 12/17/24 23:35 Baso % (Auto) 0.5 % 12/17/24 23:35 Neut # (Auto) 5.03 10^3/uL (1.8-7.7) 12/17/24 23:35 Lymph # (Auto) 1.9 10^3/uL (0.8-4.8) 12/17/24 23:35 [place] # (Auto) 0.6 10^3/uL (0.2-0.9) 12/17/24 23:35 Eos # (Auto) 0.0 10^3/uL (0.0-0.8) 12/17/24 23:35 Baso # (Auto) 0.0 10^3/uL (0.0-0.1) 12/17/24 23:35 Nucleated RBC % (auto) 0 % 12/17/24 23:35 Nucleated RBCs # 0.0 /100WBC 12/17/24 23:35 Sodium 134 mmol/L (136-145) L 12/17/24 23:35 Potassium 3.4 mmol/L (3.5-5.1) L 12/17/24 23:35 Chloride 91 mmol/L (98-107) L 12/17/24 23:35 Carbon Dioxide 29 mmol/L (22-29) 12/17/24 23:35 Anion Gap 17.4 (5-19) 12/17/24 23:35 BUN 18 mg/dL (6-20) 12/17/24 23:35 Creatinine 1.2 mg/dL (0.7-1.2) 12/17/24 23:35 GFR Calculation 65.5 mL/min (90-130) L 12/17/24 23:35 Glucose 108 mg/dL (65-115) 12/17/24 23:35 Calculated Osmolality 280 mOsm/kg (285-295) L 12/17/24 23:35 Lactic Acid 1.1 mmol/L (0.5-2.2) 12/17/24 23:35 Calcium 9.4 mg/dL (8.5-10.5) 12/17/24 23:35 Total Bilirubin 0.2 mg/dL (0.15-1.2) 12/17/24 23:35 AST 20 U/L (0-40) 12/17/24 23:35 ALT 24 U/L (0-41) 12/17/24 23:35 Alkaline Phosphatase 113 U/L (40-130) 12/17/24 23:35 Total Protein 7.7 g/dL (6.6-8.7) 12/17/24 23:35 Albumin 4.0 g/dL (3.5-5.2) 12/17/24 23:35 Globulin 3.7 g/dL (1.3-4.6) 12/17/24 23:35 All radiology interpretation(s) finalized by discharge Discharge Plan Discharge Patient Disposition: Home Clinical Impression: Influenza A, Dehydration Condition: Stable Prescriptions: New dexamethasone 6 mg tablet 6 mg PO DAILY 5 Days Qty: 5 0RF ondansetron 8 mg tablet,disintegrating 8 mg PO Q6H Qty: 14 0RF Rx Instructions: Take 1/2-1 tab every 6 hours as needed for nausea and vomiting diclofenac sodium 50 mg tablet,delayed release (DR/EC) 50 mg PO BID PRN (Reason: pain) Qty: 14 0RF No Action amlodipine 10 mg tablet See Rx Instructions .ROUTE .COMPLEX Qty: 30 2RF Dose Instruction: TAKE 1 TABLET BY MOUTH EVERY DAY FOR HIGH BLOOD PRESSURE Rx Instructions: TAKE 1 TABLET BY MOUTH EVERY DAY FOR HIGH BLOOD PRESSURE ciprofloxacin HCl 0.3 % drops See Rx Instructions ophthalmic (eye) .COMPLEX Qty: 2.5 0RF Rx Instructions: put 1-2 drps in affected eye(s) every 2hr up to 8 times/day x2days; then 4 times/day x5days ophthalmic (eye) chlorthalidone 25 mg tablet 25 mg PO DAILY Qty: 30 0RF metoprolol succinate 50 mg tablet extended release 24 hr See Rx Instructions .ROUTE .COMPLEX Qty: 60 2RF Dose Instruction: TAKE 1 TABLET BY MOUTH TWICE DAILY FOR HIGH BLOOD PRESSURE Rx Instructions: TAKE 1 TABLET BY MOUTH TWICE DAILY FOR HIGH BLOOD PRESSURE aspirin 325 mg Tablet 325 mg PO Q6H PRN (Reason: Headache) benzonatate 100 mg capsule 100 - 200 mg PO Q8H PRN (Reason: cough) Qty: 14 0RF Discharge Orders: Discharge ED (Routine); Ordered 12/17/24 Ordered By: Amy Martinez Discharge Diet: Advance as tolerated Discharge Activity: Increase activity as tolerated Patient Instructions: Influenza (ED), Opioid Safety, Pain Management Activity Restrictions/Additional Instructions: Thank you for choosing [facility] for your healthcare needs today. Please realize this is an emergency room and that we are providing you with a medical screening exam and this may not be complete and all inclusive of all the testing and or work up that you may need to determine your ailment or severity of your illness. You have been screened and evaluated and felt safe for discharge. Health conditions do change or evolve sometimes and as such it is important that you follow up with your Primary Doctor to be re checked, 3-5 days is a general good time frame for follow up. 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
[2024-12-17 23:48] LABS: Basophils % 0.5 %; Hematocrit 49.2 % (37-53); Lymphocytes # 1.9 10^3/uL (0.8-4.8); Lymphocytes % 25.3 %; Mean Corpuscular HGB Conc 33.7 g/dL (30-55); Mean Corpuscular Hemoglobin 29.5 pg (27-33); Mean Corpuscular Volume 87.4 fl (82-101); Mean Platelet Volume 10.3 fL (7.4-10.4); Monocytes # 0.6 10^3/uL (0.2-0.9); Monocytes % 7.7 %; Neutrophils # 5.03 10^3/uL (1.8-7.7); Neutrophils % 66.1 %; Nucleated Red Blood Cells % 0 %; Platelet Count 231 10^3/cmm (157-399); Red Blood Count 5.63 10^6/uL (3.85-5.65); Red Cell Distribution Width 11.9 % (12.1-15.1); White Blood Count 7.62 10^3/uL (3.29-11.43)
[2024-12-18 00:06] LABS: Alanine Aminotransferase 24 U/L (0-41); Alkaline Phosphatase 113 U/L (40-130); Anion Gap 17.4 (5-19); Aspartate Amino Transferase 20 U/L (0-40); Blood Urea Nitrogen 18 mg/dL (6-20); Calcium 9.4 mg/dL (8.5-10.5); Carbon Dioxide 29 mmol/L (22-29); Chloride 91 mmol/L (98-107); Creatinine Clr Calc Pharmacy 82.5519; Globulin 3.7 g/dL (1.3-4.6); Glomerular Filtration Rate 65.5 mL/min (90-130); Glucose 108 mg/dL (65-115); Osmolality Calculated 280 mOsm/kg (285-295); Potassium 3.4 mmol/L (3.5-5.1); Sodium 134 mmol/L (136-145); Total Bilirubin 0.2 mg/dL (0.15-1.2); Total Protein 7.7 g/dL (6.6-8.7)
[2024-12-18 00:08] LABS: Lactic Sepsis W/Reflex 1.1 mmol/L (0.5-2.2)
[2024-12-18] MEDS: ketorolac 30 mg/mL INJ IVP (01:16)
[2024-12-18] MEDS: sodium chloride 0.9% 1,000 ML 999 ML IV (01:16)
[2024-12-18] MEDS: ondansetron 2 mg/ML SDV 2 mL 8 MG IVP (01:16)
[2024-12-18 01:19] VITALS: BP 136/109; PULSE 90; RESP 16; O2SAT 98
== END 2024-12-18 02:29 | disposition home or self-care (01) ==
PROVIDERS: Emergency Provider Emergency Medicine
DX: J10.1 Influenza due to other identified influenza virus with other respiratory manifestations (principal); E86.0 Dehydration; Z79.82 Long term (current) use of aspirin; Z72.0 Tobacco use
CPT/HCPCS: 36415; 71045; 80053; 83605; 85025; 96374; 96375; 99284; J1885; J2405; J7030

== ENCOUNTER → 2025-04-02 11:49 | Outpatient (BNVA) | payer OTHER, SELFPAY | DX: Z87.898 Personal history of other specified conditions (principal); I10 Essential (primary) hypertension | CPT/HCPCS: 80053; 86705; 86706; 86709; 86803; 87340 ==